=== PATIENT | female | born 1995 | race Hispanic/Latino ===

== ENCOUNTER 2019-02-13 09:48 | Emergency (ER) | payer OTHER, SELFPAY ==
[2019-02-13] MEDS ORDERED: NA CHLORIDE 0.9% 1,000 ML ONE (10:38)
[2019-02-13] MEDS ORDERED: METOCLOPRAMIDE 10 MG/2mL INJ ONE (10:38)
[2019-02-13] MEDS ORDERED: DIPHENHYDRAMINE 50 MG/ML VIAL ONE (10:38)
[2019-02-13] MEDS ORDERED: dexAMETHasone 10 MG/ML VIAL ONE (10:39)
--- NOTE | 2019-02-13 11:01 | RAD REPORT ---
EXAM DESCRIPTION: CT - Head Brain Wo Cont - 02/13/2019 10:55 am CLINICAL HISTORY: HEADACHE Headache, drowsiness, vomiting COMPARISON: No comparisons TECHNIQUE: All CT scans are performed using dose optimization technique as appropriate and may inclu de automated exposure control or mA/KV adjustment according to patient size. FINDINGS: No intracranial hemorrhage, hydrocephalus or extra-axial fluid collection.No areas of brai n edema or evidence of midline shift. The paranasal sinuses and mastoids are clear. The calvarium is intact. IMPRESSION: No acute intracranial abnormality.
[2019-02-13 11:29] LABS: Urine Blood NEGATIVE (NEG); Urine Glucose NEGATIVE (NEG); Urine Protein NEGATIVE (NEG); Urine Specific Gravity 1.025 (1.005-1.030)
--- NOTE | 2019-02-13 11:58 | EDPHYS ---
Physician Documentation [facility] Name: Samanta North Age: 24 yrs Sex: Female : 1995 Arrival Date: 02/13/2019 Time: 09:51 Bed 8 Private MD: ED Physician Guzman Starkey HPI: 02/13 10:40 This 24 yrs old Female presents to ER via Ambulatory with complaints of rn Headache, Vomiting. 10:40 The patient complains of pain to the forehead. The patient describes the headache as rn aching. 10:41 Onset: The symptoms/episode began/occurred yesterday. Associated signs and symptoms: rn Pertinent positives: nausea, vomiting, Pertinent negatives: altered mental status, fever, neck stiffness, rash, vision changes, vision loss. Severity of symptoms: At its worst the pain was moderate, in the emergency department the pain is unchanged. The symptoms are alleviated by nothing. the symptoms are aggravated by nothing. The patient has experienced similar episodes in the past. The patient has not recently seen a physician. 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 - Social history:: Smoking status: Patient/guardian denies using tobacco, Patient uses alcohol, occasionally. Patient/guardian denies using street drugs. - Ebola Screening: : Patient negative for fever greater than or equal to 101.5 degrees Fahrenheit, and additional compatible Ebola Virus Disease symptoms Patient denies exposure to infectious person Patient denies travel to an Ebola-affected area in the 21 days before illness onset No symptoms or risks identified at this time. - Family history:: not pertinent. - Hospitalizations: : No recent hospitalization is reported. ROS: 10:41 Constitutional: Negative for fever, chills, and weight loss, Eyes: Negative for injury, rn pain, redness, and discharge, Neck: Negative for injury, pain, and swelling, Cardiovascular: Negative for chest pain, palpitations, and edema, Respiratory: Negative for shortness of breath, cough, wheezing, and pleuritic chest pain, Abdomen/GI: Negative for diarrhea, and constipation, MS/Extremity: Negative for injury and deformity, Skin: Negative for injury, rash, and discoloration, Neuro: Negative for weakness, numbness, tingling, and seizure. Exam: 10:41 Constitutional: This is a well developed, well nourished patient who is awake, alert, rn and in no acute distress. Head/Face: Normocephalic, atraumatic. Eyes: Pupils equal round and reactive to light, extra-ocular motions intact. Lids and lashes normal. Conjunctiva and sclera are non-icteric and not injected. Cornea within normal limits. Periorbital areas with no swelling, redness, or edema. Neck: Trachea midline, no thyromegaly or masses palpated, and no cervical lymphadenopathy. Supple, full range of motion without nuchal rigidity, or vertebral point tenderness. No Meningismus. Cardiovascular: Regular rate and rhythm. No pulse deficits. Respiratory: No increased work of breathing, no retractions or nasal flaring. Abdomen/GI: soft, non-tender Skin: Warm, dry MS/ Extremity: Pulses equal, no cyanosis. Neurovascular intact. Full, normal range of motion. Equal circumference. Neuro: Awake and alert, GCS 15, oriented to person, place, time, and situation. Cranial nerves II-XII grossly intact. Motor strength 5/5 in all extremities. Sensory grossly intact. Cerebellar exam normal. Normal gait. Vital Signs: 10:01 BP 138 / 96; Pulse 86; Resp 14; Temp 98.1(O); Pulse Ox 99% on R/A; Weight 61.23 kg; Height 5 ft. 4 in. (162.56 cm); Pain 8/10; 11:05 BP 115 / 84; Pulse 88; Resp 18 S; Pulse Ox 99% on R/A; Pain 8/10; aa5 10:01 Body Mass Index 23.17 (61.23 kg, 162.56 cm) Duson Coma Score: 11:55 Eye Response: spontaneous(4). Verbal Response: oriented(5). Motor Response: obeys rn commands(6). Total: 15. MDM: 10:03 Patient medically screened. rn 11:55 Differential diagnosis: cluster headache, migraine, neoplasm, tension headache, rn vasomotor headache. Data reviewed: vital signs, nurses notes, lab test result(s), radiologic studies, CT scan, and as a result, I will discharge patient. Counseling: I had a detailed discussion with the patient and/or guardian regarding: the historical points, exam findings, and any diagnostic results supporting the discharge/admit diagnosis, lab results, radiology results, the need for outpatient follow up, to return to the emergency department if symptoms worsen or persist or if there are any questions or concerns that arise at home. Response to treatment: the patient's symptoms have markedly improved after treatment, patient is well hydrated. and as a result, I will discharge patient. Special discussion: I discussed with the patient/guardian in detail that at this point there is no indication for admission to the hospital. It is understood, however, that if the symptoms persist or worsen the patient needs to return immediately for re-evaluation. Based on the history and exam findings, there is no indication for further emergent testing or inpatient evaluation. I discussed with the patient/guardian the need to see the neurologist for further evaluation of the symptoms. 11:55 ED course: Feels much better, is getting ride home.. rn 02/13 10:40 Order name: Urine Dipstick--Ancillary (enter results); Complete Time: 11:34 bd 02/13 10:40 Order name: Urine --Ancillary (enter results); Complete Time: 11:34 bd 02/13 10:32 Order name: CT Head Brain wo Cont; Complete Time: 11:34 rn 02/13 10:32 Order name: Urine Dipstick-Ancillary (obtain specimen); Complete Time: 10:53 rn 02/13 10:32 Order name: Urine Test (obtain specimen); Complete Time: 10:53 rn 02/13 10:32 Order name: IV Start; Complete Time: 10:53 rn Administered Medications: : Drug: NS 0.9% 1000 ml Route: IV; Rate: 1000 ml; Site: right antecubital; aa5 11:40 Follow up: IV Status: Completed infusion; IV Intake: 1000ml aa Drug: Decadron - Dexamethasone 10 mg Route: IVP; Site: right antecubital; aa5 11:06 Follow up: Response: No adverse reaction aa5 Drug: Benadryl 25 mg Route: IVP; Site: right antecubital; aa5 11:06 Follow up: Response: [facility] 10:56 Drug: Reglan 10 mg Route: IVP; Site: right antecubital; 5 11:06 Follow up: Response: No adverse reaction [facility] Disposition: 02/13/19 11:57 Discharged to Home. Impression: Headache. - Condition is Stable. - Discharge Instructions: General Headache Without Cause, Migraine Headache. - Medication Reconciliation Form, Thank You Letter, Antibiotic Education, Prescription Opioid Use form. - Follow up: Myron Haile MD; When: As needed; Reason: Recheck today's complaints, Re-evaluation by your physician. - Problem is new. - Symptoms have improved. Signatures: Dispatcher [employer] EDMS Karyn Link RN Guzman Pennington ch, MD MD rn Calderon, Kira, ODELL RN aa5 Corrections: (The following items were deleted from the chart) 10:43 10:41 Constitutional: Negative for fever, chills, and weight loss, Eyes: Negative for rn injury, pain, redness, and discharge, Neck: Negative for injury, pain, and swelling, Cardiovascular: Negative for chest pain, palpitations, and edema, Respiratory: Negative for shortness of breath, cough, wheezing, and pleuritic chest pain, Abdomen/GI: Negative for diarrhea, and constipation, MS/Extremity: Negative for injury and deformity, Skin: Negative for injury, rash, and discoloration, Neuro: Negative for headache, weakness, numbness, tingling, and seizure, rn 10:46 10:41 Constitutional: This is a well developed, well nourished patient who is awake, rn alert, and in no acute distress. rn 12:13 11:57 02/13/2019 11:57 Discharged to Home. Impression: Headache. Condition is Stable. ch Forms are Medication Reconciliation Form, Thank You Letter, Antibiotic Education, Prescription Opioid Use. Follow up: Myron Haile; When: As needed; Reason: Recheck today's complaints, Re-evaluation by your physician. Problem is new. Symptoms have improved. rn
--- NOTE | 2019-02-13 11:58 | ER ---
Nurse's Notes [facility] Name: Samanta North Age: 24 yrs Sex: Female : 1995 Arrival Date: 02/13/2019 Time: 09:51 Bed 8 Private MD: Diagnosis: Headache Presentation: 02/13 10:01 Presenting complaint: Patient states: headache with vomiting since 2100 yesterday. this ch has happened befrore. Transition of care: patient was not received from another setting of care. Onset of symptoms was February 12, 2019 at 21:00. Risk Assessment: Do you want to hurt yourself or someone else? Patient reports no desire to harm self or others. Initial Sepsis Screen: Does the patient meet any 2 criteria? No. Patient's initial sepsis screen is negative. Does the patient have a suspected source of infection? No. Patient's initial sepsis screen is negative. Care prior to arrival: None. 10:01 Method Of Arrival: Ambulatory 10:01 Acuity: SANCHEZ 3 Triage Assessment: 10:01 Headache History: The patient has had previous headaches and this one is similar to previous episodes. General: Appears in no apparent distress. uncomfortable. 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 - Social history:: Smoking status: Patient/guardian denies using tobacco, Patient uses alcohol, occasionally. Patient/guardian denies using street drugs. - Ebola Screening: : Patient negative for fever greater than or equal to 101.5 degrees Fahrenheit, and additional compatible Ebola Virus Disease symptoms Patient denies exposure to infectious person Patient denies travel to an Ebola-affected area in the 21 days before illness onset No symptoms or risks identified at this time. - Family history:: not pertinent. - Hospitalizations: : No recent hospitalization is reported. Screenin:14 Abuse screen: Denies threats or abuse. Nutritional screening: No deficits noted. aa5 Tuberculosis screening: No symptoms or risk factors identified. Fall Risk None identified. Assessment: 10:05 General: Appears uncomfortable, Behavior is calm, cooperative. Pain: Complains of pain aa5 in right alevism, right side of top of head, right side of forehead Pain does not radiate. Pain currently is 8 out of 10 on a pain scale. Quality of pain is described as aching, throbbing, Pain began 1 day ago. Is continuous. 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 Speech is normal, Facial symmetry appears normal, Pupils are PERRLA, Reports headache frontal area. Cardiovascular: Heart tones S1 S2 present Rhythm is regular. Respiratory: Airway is patent Respiratory effort is even, unlabored, Respiratory pattern is regular, symmetrical. GI: Abdomen is flat, non-distended, Bowel sounds present X 4 quads. Abd is soft and non tender X 4 quads. Reports nausea, vomiting. : No signs and/or symptoms were reported regarding the genitourinary system. EENT: No signs and/or symptoms were reported regarding the EENT system. Derm: Skin is pink, warm \T\ dry. Musculoskeletal: Range of motion: intact in all extremities. 10:55 Reassessment: Patient is alert, oriented x 3, equal unlabored respirations, skin aa5 warm/dry/pink. Pt back from CT scan via wheelchair . 11:40 Reassessment: Patient is alert, oriented x 3, equal unlabored respirations, skin aa5 warm/dry/pink. 12:13 Reassessment: Patient appears in no apparent distress at this time. Patient and/or ch family updated on plan of care and expected duration. Pain level reassessed. Patient is alert, oriented x 3, equal unlabored respirations, skin warm/dry/pink. Patient states feeling better. Patient states symptoms have improved. Vital Signs: 10:01 BP 138 / 96; Pulse 86; Resp 14; Temp 98.1(O); Pulse Ox 99% on R/A; Weight 61.23 kg; ch Height 5 ft. 4 in. (162.56 cm); Pain 8/10; 11:05 BP 115 / 84; Pulse 88; Resp 18 S; Pulse Ox 99% on R/A; Pain 8/10; aa5 10:01 Body Mass Index 23.17 (61.23 kg, 162.56 cm) Isadora Coma Score: 11:55 Eye Response: spontaneous(4). Verbal Response: oriented(5). Motor Response: obeys rn commands(6). Total: 15. ED Course: 09:51 Patient arrived in ED. as 10:01 Arm band placed on left wrist. Patient placed in an exam room, on a stretcher. ch 10:02 Triage completed. ch 10:03 Guzman Starkey MD is Attending Physician. rn 10:04 Kira Echavarria RN is Primary Nurse. aa5 10:05 Patient has correct armband on for positive identification. Bed in low position. Call aa5 light in reach. Side rails up X 1. 10:53 Urine collected: clean catch specimen, cloudy, nae colored. jb1 10:55 Inserted saline lock: 20 gauge in right antecubital area, using aseptic technique. aa5 10:59 CT Head Brain wo Cont In Process Unspecified. EDMS 11:56 Myron Haile MD is Referral Physician. rn 12:13 No provider procedures requiring assistance completed. IV discontinued, intact, ch bleeding controlled, No redness/swelling at site. Pressure dressing applied. Administered Medications: 10:55 Drug: NS 0.9% 1000 ml Route: IV; Rate: 1000 ml; Site: right antecubital; aa5 11:40 Follow up: IV Status: Completed infusion; IV Intake: 1000ml aa5 10:55 Drug: Decadron - Dexamethasone 10 mg Route: IVP; Site: right antecubital; aa5 11:06 Follow up: Response: No adverse reaction aa5 10:55 Drug: Benadryl 25 mg Route: IVP; Site: right antecubital; aa5 11:06 Follow up: Response: No adverse reaction aa5 10:56 Drug: Reglan 10 mg Route: IVP; Site: right antecubital; aa5 11:06 Follow up: Response: No adverse reaction aa5 Intake: 11:40 IV: 1000ml; Total: 1000ml. aa5 Outcome: 11:57 Discharge ordered by . rn 12:13 Discharged to home ambulatory, with family. ch 12:13 Condition: improved 12:13 Discharge instructions given to patient, Instructed on discharge instructions, follow up and referral plans. Demonstrated understanding of instructions, follow-up care. 12:13 Patient left the ED. ch Signatures: Dispatcher [employer] Matt Powell jb1 Karyn Link RN RN ch Martinez, Amelia as Nieto, Roman, MD MD rn Calderon, Audri, RN RN aa5
[2019-02-13 12:33] VITALS: BP 115/84; O2SAT 99
[2019-02-13 12:35] VITALS: TEMP 98.1
== END 2019-02-13 12:13 | disposition home or self-care (01) ==
LOC: ER 09:48
DX: R51 Headache (principal)
CPT/HCPCS: 70450; 81003; 81025; 96361; 96374; 96375; 99284; J1100; J2765; J7030

== ENCOUNTER 2019-08-11 10:10 | Emergency (ER) | payer SELFPAY ==
[2019-08-11 12:00] LABS: Absolute Lymphocytes (CBC) 2.1 K/uL (0.7-4.9); Basophils % 0.4 % (0-1.3); Hematocrit 38.8 % (36.0-45.0); Lymphocytes % 24.9 % (15.3-44.8); RBC Red Blood Cell Count 4.46 M/uL (3.86-4.86)
[2019-08-11 12:13] LABS: BUN Blood Urea Nitrogen 13 mg/dL (7-18); Bicarbonate 27 mmol/L (21-32); Glucose Level 79 mg/dL (74-106); Potassium 3.7 mmol/L (3.5-5.1); Sodium Level 140 mmol/L (136-145)
--- NOTE | 2019-08-11 12:23 | EDPHYS ---
Physician Documentation [facility] Name: Samanta North Age: 24 yrs Sex: Female : 1995 Arrival Date: 08/11/2019 Time: 10:19 Bed 7 Private MD: ED Physician Roberto Young HPI: 08/10 12:06 This 24 yrs old Female presents to ER via Ambulatory with complaints of tw4 Vaginal Bleeding. 12:06 The patient presents with vaginal bleeding that is. Onset: The symptoms/episode tw4 began/occurred today. Modifying factors: The symptoms are alleviated by nothing, the symptoms are aggravated by nothing. Associated signs and symptoms: The patient has no apparent associated signs or symptoms. Severity of symptoms: At their worst the symptoms were moderate, in the emergency department the symptoms are unchanged. The patient has not experienced similar symptoms in the past. Historical: - Allergies: 10:37 No Known Allergies; ss - Home Meds: 10:37 control [Active]; ss - PMHx: 10:37 None; ss - PSHx: 10:37 r wrist; ss - Immunization history:: Adult Immunizations unknown. - Social history:: Smoking status: Patient denies any tobacco usage or history of. ROS: 12:06 Positive for vaginal bleeding, Negative for injury or acute deformity, urinary tw4 symptoms, urinary frequency, hematuria, pelvic pain, flank pain, burning with urination, difficulty urinating, bladder incontinence, foul smelling urine, vaginal itching, menstrual abnormality. 12:06 Constitutional: Negative for fever, chills, and weight loss, Eyes: Negative for injury, pain, redness, and discharge, Cardiovascular: Negative for chest pain, palpitations, and edema, Respiratory: Negative for shortness of breath, cough, wheezing, and pleuritic chest pain, Abdomen/GI: Negative for abdominal pain, nausea, vomiting, diarrhea, and constipation, Back: Negative for injury and pain, MS/Extremity: Negative for injury and deformity, Skin: Negative for injury, rash, and discoloration. Exam: 21:10 Constitutional: This is a well developed, well nourished patient who is awake, alert, tw4 and in no acute distress. Head/Face: Normocephalic, atraumatic. Chest/axilla: Normal chest wall appearance and motion. Nontender with no deformity. No lesions are appreciated. Cardiovascular: Regular rate and rhythm with a normal S1 and S2. No gallops, murmurs, or rubs. Normal PMI, no JVD. No pulse deficits. Respiratory: Lungs have equal breath sounds bilaterally, clear to auscultation and percussion. No rales, rhonchi or wheezes noted. No increased work of breathing, no retractions or nasal flaring. Abdomen/GI: Soft, non-tender, with normal bowel sounds. No distension or tympany. No guarding or rebound. No evidence of tenderness throughout. MS/ Extremity: Pulses equal, no cyanosis. Neurovascular intact. Full, normal range of motion. Neuro: Awake and alert, GCS 15, oriented to person, place, time, and situation. Cranial nerves II-XII grossly intact. Motor strength 5/5 in all extremities. Sensory grossly intact. Cerebellar exam normal. Normal gait. 21:10 : Pelvic Exam: Vital Signs: 10:35 BP 128 / 91; Pulse 61; Resp 14; Temp 98.1(TE); Pulse Ox 100% on R/A; Weight 58.97 kg; ss Height 5 ft. 4 in. (162.56 cm); Pain 6/10; 12:00 BP 118 / 78; Pulse 67; Resp 18; Temp 97.9; Pulse Ox 99% on R/A; ph 10:35 Body Mass Index 22.31 (58.97 kg, 162.56 cm) ss MDM: 11:27 Patient medically screened. 21:12 Data reviewed: vital signs, nurses notes. Special discussion: I discussed with the 4 patient/guardian in detail that at this point there is no indication for admission to the hospital. It is understood, however, that if the symptoms persist or worsen the patient needs to return immediately for re-evaluation. 08/10 10:58 Order name: Abo/rh Typing 08/10 10:58 Order name: Basic Metabolic Panel; Complete Time: 12:21 08/10 12:21 Interpretation: Normal except: CL 108. 08/10 10:58 Order name: CBC with Diff; Complete Time: 12:21 08/10 12:21 Interpretation: Normal except: MCV 87.1. 08/10 10:58 Order name: IV Saline Lock; Complete Time: 11:51 08/10 10:58 Order name: Labs collected and sent; Complete Time: 11:51 tw4 08/10 12:23 Order name: Urine Dipstick--Ancillary (enter results) bd 08/10 10:58 Order name: NPO; Complete Time: 11:51 tw4 08/10 10:58 Order name: Urine Dipstick-Ancillary (obtain specimen); Complete Time: 11:51 tw4 Administered Medications: No medications were administered Disposition: 08/11/19 12:22 Discharged to Home. Impression: Abnormal uterine and vaginal bleeding, unspecified, Cellulitis of perineum. - Condition is Stable. - Discharge Instructions: Abnormal Uterine Bleeding, Cellulitis, Adult. - Prescriptions for Cleocin 150 mg Oral Capsule - take 1 capsule by ORAL route every 6 hours for 10 days; 40 capsule. - Work release form, Medication Reconciliation Form, Thank You Letter, Antibiotic Education, Prescription Opioid Use form. - Follow up: Private Physician; When: Upon discharge from the Emergency Department; Reason: If symptoms return, Recheck today's complaints, Continuance of care. Signatures: Dispatcher [employer] EDMS Santa James Shelby RN RN Evelina Ward RN RN Roberto Young MD MD tw4 Corrections: (The following items were deleted from the chart) 12:26 12:09 Labs - recollect needed ordered. ph 12:39 12:22 08/11/2019 12:22 Discharged to Home. Impression: Abnormal uterine and vaginal ph bleeding, unspecified; Cellulitis of perineum. Condition is Stable. Forms are Medication Reconciliation Form, Thank You Letter, Antibiotic Education, Prescription Opioid Use. Follow up: Private Physician; When: Upon discharge from the Emergency Department; Reason: If symptoms return, Recheck today's complaints, Continuance of care. tw4
--- NOTE | 2019-08-11 12:23 | ER ---
Nurse's Notes [facility] Name: Samanta North Age: 24 yrs Sex: Female : 1995 Arrival Date: 08/11/2019 Time: 10:19 Bed 7 Private MD: Diagnosis: Abnormal uterine and vaginal bleeding, unspecified;Cellulitis of perineum Presentation: 08/10 10:35 Chief complaint: Patient states: "I have swelling on one side of my outer labia and I ss started bleeding this morning, but I had my period like a week and a half ago. Coronavirus screen: The patient has NOT traveled to [place] in the past 14 days. Proceed with normal triage procedures. Ebola Screen: Patient denies exposure to infectious person. Patient denies travel to an Ebola-affected area in the 21 days before illness onset. Initial Sepsis Screen: Does the patient meet any 2 criteria? No. Patient's initial sepsis screen is negative. Does the patient have a suspected source of infection? No. Patient's initial sepsis screen is negative. Risk Assessment: Do you want to hurt yourself or someone else? Patient reports no desire to harm self or others. 10:35 Method Of Arrival: Ambulatory ss 10:35 Acuity: SANCHEZ 3 ss Historical: - Allergies: 10:37 No Known Allergies; ss - Home Meds: 10:37 control [Active]; ss - PMHx: 10:37 None; ss - PSHx: 10:37 r wrist; ss - Immunization history:: Adult Immunizations unknown. - Social history:: Smoking status: Patient denies any tobacco usage or history of. Screenin:00 Abuse screen: Denies threats or abuse. Denies injuries from another. Nutritional ph screening: No deficits noted. Tuberculosis screening: No symptoms or risk factors identified. Fall Risk None identified. Assessment: 12:00 General: Appears in no apparent distress. comfortable, slender, well groomed, Behavior ph is calm, cooperative, appropriate for age. Pain: Complains of pain in pelvis. Neuro: Level of Consciousness is awake, alert, obeys commands, Oriented to person, place, time, situation. Cardiovascular: Capillary refill < 3 seconds. Respiratory: Airway is patent Respiratory effort is even, unlabored. : Reports pain with urination, vaginal bleeding that is light flow, spotty. Derm: Skin is intact, is healthy with good turgor, Skin is pink, warm \\T\\ dry. Musculoskeletal: Circulation, motion, and sensation intact. Range of motion: intact in all extremities. Vital Signs: 10:35 BP 128 / 91; Pulse 61; Resp 14; Temp 98.1(TE); Pulse Ox 100% on R/A; Weight 58.97 kg; Height 5 ft. 4 in. (162.56 cm); Pain 6/10; 12:00 BP 118 / 78; Pulse 67; Resp 18; Temp 97.9; Pulse Ox 99% on R/A; ph 10:35 Body Mass Index 22.31 (58.97 kg, 162.56 cm) ED Course: 10:19 Patient arrived in ED. mr 10:37 Triage completed. 10:37 Arm band placed on right wrist. 10:57 Roberto Young MD is Attending Physician. tw4 11:31 Evelina Ward RN is Primary Nurse. ph 11:36 Initial lab(s) drawn, by mt, sent to lab. Urine collected: clean catch specimen, clear, dh3 T\\T\\S collected, blood band applied to patient. Inserted saline lock: 22 gauge in right antecubital area, using aseptic technique. Blood collected. 12:00 Patient has correct armband on for positive identification. Placed in gown. Bed in low ph position. Call light in reach. Side rails up X 1. Pulse ox on. NIBP on. Door closed. Warm blanket given. Pillow given. Head of bed. 12:00 No provider procedures requiring assistance completed. IV discontinued, intact, ph bleeding controlled, No redness/swelling at site. Pressure dressing applied. Administered Medications: No medications were administered Outcome: 12:22 Discharge ordered by . tw4 12:39 Patient left the ED. ph 12:39 Discharged to home ambulatory. ph 12:39 Condition: good 12:39 Discharge instructions given to patient, Instructed on discharge instructions, follow up and referral plans. medication usage, Demonstrated understanding of instructions, follow-up care, medications, Prescriptions given X 1. Signatures: CadeMery le mr Abi Sim RN RN Evelina Ward RN RN Davina Mejia [facility] Roberto Young MD MD tw4
[2019-08-11 12:30] LABS: Urine Blood 2+ (NEG); Urine Glucose NEGATIVE (NEG); Urine Protein NEGATIVE (NEG); Urine pH 5.5 (5.0-7.0)
[2019-08-11 12:53] VITALS: BP 128/91; TEMP 98.1; O2SAT 100
== END 2019-08-11 12:39 | disposition home or self-care (01) ==
LOC: ER 10:10
DX: N93.9 Abnormal uterine and vaginal bleeding, unspecified (principal); L03.315 Cellulitis of perineum
CPT/HCPCS: 36415; 80048; 81003; 85025; 86900; 86901; 99284

== ENCOUNTER 2020-09-13 20:34 | Emergency (ER) | payer OTHER, SELFPAY ==
[2020-09-13] MEDS ORDERED: IBUPROFEN 200 MG TAB PO ONE (21:21)
[2020-09-13 21:29] LABS: Urine Blood 2+ (Negative); Urine Glucose Negative (Negative); Urine Protein 2+ (Negative); Urine Specific Gravity 1.025 (1.005-1.030); Urine pH 6.5 (5.0-7.0)
[2020-09-13 23:57] LABS: Absolute Lymphocytes (CBC) 0.6 K/uL (0.7-4.9); Basophils % 0.3 % (0-1.3); Hematocrit 37.8 % (36.0-45.0); Lymphocytes % 3.7 % (15.3-44.8); MPV 9.2 fL (7.6-11.3); RBC Red Blood Cell Count 4.39 M/uL (3.86-4.86)
[2020-09-14] MEDS ORDERED: NA CHLORIDE 0.9% 1,000 ML ONE (00:01)
[2020-09-14] MEDS ORDERED: MORPHINE 4 MG/ML SYR ONE (00:01)
[2020-09-14] MEDS ORDERED: ONDANSETRON 4 MG/2 ML VIAL ONE (00:01)
[2020-09-14 00:08] LABS: Albumin 3.9 g/dL (3.4-5.0); Bilirubin Direct 0.3 mg/dL (0-0.2); Bilirubin Total 0.9 mg/dL (0.2-1.0); Potassium 3.6 mmol/L (3.5-5.1); Protein, Total 8.2 g/dL (6.4-8.2)
[2020-09-14 00:39] LABS: Urine Specific Gravity/Preg 1.025 (1.005-1.030)
[2020-09-14 00:40] LABS: SARS-COV-2 RT PCR NEGATIVE (NEGATIVE)
[2020-09-14 00:45] LABS: Urine Bacteria >50 /HPF (<20)
[2020-09-14 00:47] LABS: Urine RBC <5 /HPF (NONE SEEN)
--- NOTE | 2020-09-14 01:56 | EDPHYS ---
Physician Documentation [facility] Name: Samanta North Age: 25 yrs Sex: Female : 1995 Arrival Date: 09/13/2020 Time: 20:38 Bed 18 Private MD: ED Physician Cody Saavedra HPI: 09/13 23:39 This 25 yrs old Female presents to ER via Ambulatory with complaints of Back pm1 Pain, Nausea, Chills. 23:39 The patient presents with pain that is acute. The symptoms are located in the right mid pm1 back. Onset: The symptoms/episode began/occurred 3 day(s) ago. The pain radiates to the right upper quadrant. Associated signs and symptoms: Pertinent positives: fever, nausea, Urinary frequency, Pertinent negatives: vomiting. The problem was sustained from unknown cause. Modifying factors: The patient symptoms are alleviated by nothing, the patient symptoms are aggravated by nothing. Severity of symptoms: in the emergency department the symptoms are actually worse. The patient has not experienced similar symptoms in the past. 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 - Social history:: Smoking status: Patient denies any tobacco usage or history of. ROS: 23:39 Cardiovascular: Negative for chest pain, palpitations, and edema, Respiratory: Negative pm1 for shortness of breath, cough, wheezing, and pleuritic chest pain. 23:39 MS/Extremity: Negative for injury and deformity, Skin: Negative for injury, rash, and discoloration, Neuro: Negative for headache, weakness, numbness, tingling, and seizure. 23:39 Constitutional: Positive for body aches, chills, fever, poor PO intake. 23:39 Abdomen/GI: Positive for abdominal pain, nausea, Negative for vomiting, diarrhea. 23:39 Back: Positive for flank pain, on the right. 23:39 : Positive for urinary frequency, Negative for burning with urination. Exam: 23:39 Constitutional: This is a well developed, well nourished patient who is awake, alert, pm1 and in no acute distress. Head/Face: Normocephalic, atraumatic. 23:39 Skin: Warm, dry with normal turgor. Normal color with no rashes, no lesions, and no evidence of cellulitis. MS/ Extremity: Pulses equal, no cyanosis. Neurovascular intact. Full, normal range of motion. 23:39 Cardiovascular: Exam negative for acute changes, Rate: normal, Rhythm: regular, Pulses: no pulse deficits are appreciated. 23:39 Respiratory: Exam negative for acute changes, respiratory distress, shortness of breath. 23:39 Abdomen/GI: Inspection: abdomen appears normal, Palpation: abdomen is soft and non-tender, in all quadrants. 23:39 Back: pain, that is mild, of the right mid back. 23:39 Neuro: Orientation: is normal, Mentation: is normal, Motor: is normal, moves all fours, Sensation: is normal, no obvious gross deficits. Vital Signs: 20:57 BP 126 / 91; Pulse 121; Resp 17; Temp 102.6; Pulse Ox 99% ; Weight 55.79 kg; Height 5 ll1 ft. 4 in. (162.56 cm); Pain 6/10; 23:18 BP 102 / 65; Pulse 102; Resp 15; Temp 99.6; Pulse Ox 97% ; Weight 55.79 kg; Height 5 ms1 ft. 4 in. (162.56 cm); 09/14 00:00 BP 110 / 71; Pulse 100; Resp 18; Pulse Ox 100% on R/A; wh 01:15 BP 99 / 64; Pulse 82; Resp 18; Pulse Ox 96% on R/A; wh 09/13 23:18 Body Mass Index 21.11 (55.79 kg, 162.56 cm) ms1 MDM: 09/13 23:13 Patient medically screened. pm1 23:27 ED course: Unable to order CT with IV contrast due to patient allergy - Throat closure, pm1 difficulty breathing with shellfish. 09/14 00:31 Data reviewed: vital signs. Data interpreted: Pulse oximetry: on room air is 97 %. pm1 Interpretation: normal. 01:45 Data reviewed: lab test result(s), CBC, electrolytes, urinalysis, radiologic studies, pm1 CT scan, I have discussed the patient's presentation/case with the attending Emergency Department Physician; and as a result, I will discharge patient, with antibiotics. Clinically pyelonephritis. Patient needs to follow up with urology due to bilateral hydronephrosis. Educated on return precautions . 01:52 Counseling: I had a detailed discussion with the patient and/or guardian regarding: the pm1 historical points, exam findings, and any diagnostic results supporting the discharge/admit diagnosis, lab results, radiology results, the need for outpatient follow up, a urologist, to return to the emergency department if symptoms worsen or persist or if there are any questions or concerns that arise at home. 09/13 21:29 Order name: Urine Dipstick-Ancillary; Complete Time: 23:20 EDIA 09/13 23:20 Order name: Basic Metabolic Panel pm1 09/13 23:20 Order name: CBC with Diff; Complete Time: 08:23 pm 09/13 23:20 Order name: Hepatic Function; Complete Time: 00:19 pm 09/13 23:20 Order name: Lipase; Complete Time: 00:19 pm 09/13 23:20 Order name: Urine Microscopic Only; Complete Time: 01:19 [facility] 09/13 23:21 Order name: Basic Metabolic Panel; Complete Time: 00:19 EDIA 09/13 23:26 Order name: CT Stone Protocol 1 09/13 23:32 Order name: Urine --Ancillary (enter results); Complete Time: 01:19 [facility] 09/14 00:06 Order name: Manual Differential; Complete Time: 08:23 EDIA 09/14 00:40 Order name: COVID-19/FLU A+B; Complete Time: 01:19 EDIA 09/14 00:49 Order name: Urine Culture [facility] 09/13 23:20 Order name: IV Saline Lock; Complete Time: 23:45 pm1 09/13 23:20 Order name: Labs collected and sent; Complete Time: 23:45 pm1 09/13 23:20 Order name: Urine Test (obtain specimen); Complete Time: 23:31 pm1 Administered Medications: 09/13 21:06 Drug: Motrin (ibuprofen) 600 mg Route: PO; [facility] 09/14 01:28 Follow up: Response: No adverse reaction 09/13 23:47 Drug: NS 0.9% 1000 ml Route: IV; Rate: 1000 ml; Site: right antecubital; 09/14 01:28 Follow up: Response: No adverse reaction; IV Status: Completed infusion 09/13 23:49 Drug: morphine 4 mg {Note: RASS 0.} Route: IVP; Site: right antecubital; 09/14 01:28 Follow up: Response: No adverse reaction; Pain is decreased; RASS: Alert and Calm (0) 09/13 23:51 Drug: Zofran (Ondansetron) 4 mg Route: IVP; Site: right antecubital; 09/14 01:28 Follow up: Response: No adverse reaction; Nausea is decreased Disposition: 08:22 Co-signature as Attending Physician, Cody Saavedra MD. pkshaka Disposition: 09/14/20 01:56 Discharged to Home. Impression: Urinary tract infection, site not specified - pyelonephritis. - Condition is Stable. - Discharge Instructions: Pyelonephritis, Adult, Urinary Tract Infection, Adult, Hydronephrosis. - Prescriptions for Cipro 500 mg Oral Tablet - take 1 tablet by ORAL route every 12 hours for 7 days; 14 tablet. Tylenol- Codeine #3 300-30 mg Oral Tablet - take 2 tablet by ORAL route every 4-6 hours As needed; 20 tablet. Zofran 4 mg Oral Tablet - take 1 tablet by ORAL route every 8 hours As needed; 20 tablet. - Medication Reconciliation Form, Thank You Letter, Antibiotic Education, Prescription Opioid Use form. - Follow up: Emergency Department; When: As needed; Reason: Worsening of condition. Follow up: Danish Dsouza MD; When: 2 - 3 days; Reason: Recheck today's complaints, Continuance of care, Re-evaluation by your physician. - Problem is new. - Symptoms have improved. Signatures: Dispatcher [employer] EDIA Cody Saavedra MD MD pkl Dann Barnes NP INTERMISSION COORDINATOR pm1 Miles Pereyra, RN RN jb4 Gurpreet Anthony, RN RN Valentino Rodriguez RN RN ll1 Corrections: (The following items were deleted from the chart) 00:01 09/13 23:27 CORONAVIRUS+MR.LAB.BRZ ordered. [facility] 09/14 00:01 04 23:27 Influenza Screen (A \T\ B)+BA.LAB.BRZ ordered. [facility] 09/14 02:59 01:56 09/14/2020 01:56 Discharged to Home. Impression: Urinary tract infection, site jb4 not specified - pyelonephritis. Condition is Stable. Forms are Medication Reconciliation Form, Thank You Letter, Antibiotic Education, Prescription Opioid Use. Follow up: Emergency Department; When: As needed; Reason: Worsening of condition. Follow up: Danish Dsouza; When: 2 - 3 days; Reason: Recheck today's complaints, Continuance of care, Re-evaluation by your physician. Problem is new. Symptoms have improved. pm1
--- NOTE | 2020-09-14 01:56 | ER ---
Nurse's Notes [facility] Name: Samanta North Age: 25 yrs Sex: Female : 1995 Arrival Date: 09/13/2020 Time: 20:38 Bed 18 Private MD: Diagnosis: Urinary tract infection, site not specified-pyelonephritis Presentation: 09/13 20:57 Chief complaint: Patient states: R lower back pain since Sunday night. Chills, ll1 decreased appetite, fever for 2 days. Coronavirus screen: Client denies travel out of the [place] in the last 14 days. chills, fatigue, fever, Client presents with at least one sign or symptom that may indicate coronavirus-19. Standard/surgical mask placed on the client. Ebola Screen: Patient denies travel to an Ebola-affected area in the 21 days before illness onset. Initial Sepsis Screen: Does the patient meet any 2 criteria? HR > 90 bpm. No. Patient's initial sepsis screen is negative. Does the patient have a suspected source of infection? Yes: Dysuria/Frequency/Urgency/UTI. Risk Assessment: Do you want to hurt yourself or someone else? Patient reports no desire to harm self or others. Onset of symptoms was September 11, 2020. 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 - Social history:: Smoking status: Patient denies any tobacco usage or history of. Screenin:15 Abuse screen: Denies threats or abuse. Denies injuries from another. Nutritional wh screening: No deficits noted. Tuberculosis screening: No symptoms or risk factors identified. Fall Risk None identified. Assessment: 23:15 General: Appears in no apparent distress. uncomfortable, Behavior is calm, cooperative, wh appropriate for age. General: Reports chills for fever for. Pain: Complains of pain in right mid back Pain radiates to right upper quadrant. Neuro: Cardiovascular: Capillary refill < 3 seconds. Respiratory: Airway is patent Respiratory effort is even, unlabored, Respiratory pattern is regular, symmetrical. GI: Abdomen is flat, non-distended, Abd is soft and non tender X 4 quads. : Reports urinary frequency. EENT: No signs and/or symptoms were reported regarding the EENT system. Derm: Skin is intact, is healthy with good turgor, Skin is pink, warm \T\ dry. normal. Musculoskeletal: Circulation, motion, and sensation intact. 09/14 00:20 Reassessment: Patient appears in no apparent distress at this time. No changes from previously documented assessment. Patient and/or family updated on plan of care and expected duration. Pain level reassessed. Patient is alert, oriented x 3, equal unlabored respirations, skin warm/dry/pink. 01:30 Reassessment: Patient appears in no apparent distress at this time. Patient and/or wh family updated on plan of care and expected duration. Pain level reassessed. Patient is alert, oriented x 3, equal unlabored respirations, skin warm/dry/pink. 02:58 Reassessment: Patient appears in no apparent distress at this time. Patient and/or jb4 family updated on plan of care and expected duration. Pain level reassessed. Patient is alert, oriented x 3, equal unlabored respirations, skin warm/dry/pink. Pt verbalized understanding of d/c and follow up instructions. Denies questions or concerns. Ambulated out of ED with steady gait. Vital Signs: 09/13 20:57 BP 126 / 91; Pulse 121; Resp 17; Temp 102.6; Pulse Ox 99% ; Weight 55.79 kg; Height 5 ll1 ft. 4 in. (162.56 cm); Pain 6/10; 23:18 BP 102 / 65; Pulse 102; Resp 15; Temp 99.6; Pulse Ox 97% ; Weight 55.79 kg; Height 5 ms1 ft. 4 in. (162.56 cm); 09/14 00:00 BP 110 / 71; Pulse 100; Resp 18; Pulse Ox 100% on R/A; 01:15 BP 99 / 64; Pulse 82; Resp 18; Pulse Ox 96% on R/A; 09/13 23:18 Body Mass Index 21.11 (55.79 kg, 162.56 cm) ms1 ED Course: 09/13 20:38 Patient arrived in ED. es 20:59 Triage completed. ll1 20:59 Arm band placed on Patient notified of wait time. ll1 23:07 Gurpreet Anthony, RN is Primary Nurse. 23:12 Dann Barnes NP is [facility]. pm1 23:12 Cody Saavedra MD is Attending Physician. pm1 23:15 Patient has correct armband on for positive identification. Bed in low position. Call light in reach. Side rails up X 1. Pulse ox on. NIBP on. 09/14 00:57 CT Stone Protocol In Process Unspecified. EDVT 01:55 Danish Dsouza MD is Referral Physician. pm1 02:58 No provider procedures requiring assistance completed. IV discontinued, intact, jb4 bleeding controlled, No redness/swelling at site. Pressure dressing applied. Administered Medications: 09/13 21:06 Drug: Motrin (ibuprofen) 600 mg Route: PO; [facility] 09/14 01:28 Follow up: Response: No adverse reaction 09/13 23:47 Drug: NS 0.9% 1000 ml Route: IV; Rate: 1000 ml; Site: right antecubital; 09/14 01:28 Follow up: Response: No adverse reaction; IV Status: Completed infusion 09/13 23:49 Drug: morphine 4 mg {Note: RASS 0.} Route: IVP; Site: right antecubital; 09/14 01:28 Follow up: Response: No adverse reaction; Pain is decreased; RASS: Alert and Calm (0) 09/13 23:51 Drug: Zofran (Ondansetron) 4 mg Route: IVP; Site: right antecubital; 09/14 01:28 Follow up: Response: No adverse reaction; Nausea is decreased Outcome: 01:56 Discharge ordered by . pm1 02:58 Discharged to home ambulatory. jb4 02:58 Condition: stable 02:58 Discharge instructions given to patient, Instructed on discharge instructions, follow up and referral plans. medication usage, Demonstrated understanding of instructions, follow-up care, medications, Prescriptions given X 3. 02:59 Patient left the ED. jb4 Addendum: 09/17/2020 07:32 Addendum: Culture Results: Positive urine culture. No further action required. Bacteria e b sensitive to prescribed antibiotic. Signatures: Dispatcher [employer] EDMyah Reynoso, Dann, CAMPAIGN COORDINATOR CAMPAIGN COORDINATOR pm1 Miles Pererya, RN RN jb4 Gurpreet Anthony RN RN Ana Laura Lauren Marchie ms1 Valentino Rodriguez, ODELL RN ll1
[2020-09-14 02:03] LABS: Blood Morphology Comment NOT SEEN (NOT SEEN); Platelet Estimate ADEQ
[2020-09-14 04:15] VITALS: TEMP 99.6
[2020-09-14 04:18] VITALS: BP 99/64; O2SAT 96
--- NOTE | 2020-09-14 12:50 | RAD REPORT ---
EXAM DESCRIPTION: CT - Stone Protocol - 09/14/2020 6:33 am CLINICAL HISTORY: 25 years Female Flank pain;Fever COMPARISON: None TECHNIQUE: Images were obtained in axial, sagittal, and coronal planes. No intravenous contrast was administered. This exam was performed according to our departmental dose-optimization program which includes use of Automated Exposure Control, adjustment of the mA and/or kV according to patient size and/or use o f iterative reconstruction technique. FINDINGS: Enlarged left lobe of the liver. Spleen is prominent in size measuring 12.8 cm in greatest dimension. Unremarkable pancreas, gallbladder, or adrenal glands bilaterally. No obstructing renal or ureteral calculi bilaterally. Mild bilateral hydronephrosis. No definite fuad nephric stranding bilaterally. Unremarkable bladder. Pelvic calcifications thought to be vascular in nature. Appendix within normal limits. No bowel obstruction, perforation, or inflammation. No abnormality lower lungs bilaterally. No acute osseous abnormality. IMPRESSION: Mild bilateral hydronephrosis. No obstructing renal or ureteral calculi bilaterally. Appendix within normal limits. Electronically signed by: Tanja Ackerman MD 09/14/2020 1:09 AM CDT Due to temporary technical issues with the PACS/Fluency reporting system, reports are being signed by the in house radiologist without review as a courtesy to ensure prompt reporting. The interpreting r adiologist is fully responsible for the content of the report.
== END 2020-09-14 02:59 | disposition home or self-care (01) ==
LOC: ER 20:34
DX: N39.0 Urinary tract infection, site not specified (principal); N12 Tubulo-interstitial nephritis, not specified as acute or chronic; Z20.822 Contact with and (suspected) exposure to COVID-19; Z91.013 Allergy to seafood
CPT/HCPCS: 0240U; 36415; 74176; 76377; 80048; 80076; 81003; 81015; 81025; 83690; 85025; 87077; 87086; 87088; 87186; 96361; 96374; 96375; 99284

== ENCOUNTER 2020-09-25 20:02 | Inpatient (IN) | payer OTHER, SELFPAY ==
[2020-09-25 21:15] LABS: Absolute Lymphocytes (CBC) 1.9 K/uL (0.7-4.9); Basophils % 0.4 % (0-1.3); Lymphocytes % 14.6 % (15.3-44.8); MPV 7.5 fL (7.6-11.3); RBC Red Blood Cell Count 4.28 M/uL (3.86-4.86)
[2020-09-25] MEDS ORDERED: ONDANSETRON 4 MG/2 ML VIAL ONE (21:15)
[2020-09-25] MEDS ORDERED: MORPHINE 4 MG/ML SYR ONE ×2 (21:15→23:28)
[2020-09-25 21:32] LABS: ALT/SGPT 31 U/L (12-78); AST/SGOT 11 U/L (15-37); Alkaline Phosphatase 71 U/L (45-117); BUN Blood Urea Nitrogen 13 mg/dL (7-18); Bicarbonate 28 mmol/L (21-32); Bilirubin Direct 0.2 mg/dL (0-0.2); Bilirubin Total 0.5 mg/dL (0.2-1.0); Glucose Level 90 mg/dL (74-106); Lipase 118 U/L (73-393); Potassium 3.6 mmol/L (3.5-5.1); Sodium Level 138 mmol/L (136-145)
[2020-09-25 21:36] LABS: Urine Bacteria <20 /HPF (<20); Urine RBC <5 /HPF (NONE SEEN)
--- NOTE | 2020-09-25 22:58 | ER ---
Nurse's Notes [facility] Name: Samanta North Age: 25 yrs Sex: Female : 1995 Arrival Date: 09/25/2020 Time: 20:06 Bed 16 Private MD: Diagnosis: Other intestinal obstruction-Small bowel ileus versus small bowel obstruction;Constipation Presentation: 09/25 20:18 Chief complaint: Patient states: Had kidney infection last week, been taking meds and ca1 feeling better. This morning the pain is back, started at the back then goes on the R side and now it's all over my belly. Not been able to eat all day because of nausea. Coronavirus screen: Client denies travel out of the [place] in the last 14 days. nausea, Client presents with at least one sign or symptom that may indicate coronavirus-19. Standard/surgical mask placed on the client. Provider contacted for isolation considerations. Ebola Screen: Patient negative for fever greater than or equal to 101.5 degrees Fahrenheit, and additional compatible Ebola Virus Disease symptoms Patient denies exposure to infectious person. Patient denies travel to an Ebola-affected area in the 21 days before illness onset. No symptoms or risks identified at this time. Initial Sepsis Screen: Does the patient meet any 2 criteria? No. Patient's initial sepsis screen is negative. Does the patient have a suspected source of infection? No. Patient's initial sepsis screen is negative. Risk Assessment: Do you want to hurt yourself or someone else? Patient reports no desire to harm self or others. Onset of symptoms was September 25, 2020. 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 - Social history:: Smoking status: Patient denies any tobacco usage or history of. Screenin:00 Abuse screen: Denies threats or abuse. Denies injuries from another. Nutritional rr5 screening: No deficits noted. Tuberculosis screening: No symptoms or risk factors identified. Fall Risk IV access (20 points). Total Rogel Fall Scale indicates No Risk (0-24 pts). Assessment: 21:00 General: Appears in no apparent distress. uncomfortable, Behavior is calm, cooperative, rr5 appropriate for age. Pain: Complains of pain in right lower quadrant and left lower quadrant Pain radiates to back Pain currently is 7 out of 10 on a pain scale. Quality of pain is described as aching, Pain began gradually, Is intermittent. Neuro: Level of Consciousness is awake, alert, obeys commands, Oriented to person, place, time. Cardiovascular: Capillary refill < 3 seconds Patient's skin is warm and dry. Respiratory: Airway is patent Respiratory effort is even, unlabored, Respiratory pattern is regular, symmetrical. GI: Abdomen is flat, non-distended, Reports lower abdominal pain. : Reports pain in bilateral flank(s), in lower back Denies burning with urination. EENT: No signs and/or symptoms were reported regarding the EENT system. Derm: Skin is intact, is healthy with good turgor, Skin temperature is warm. 21:00 Musculoskeletal: No signs and/or symptoms reported regarding the musculoskeletal system.rr5 21:38 Reassessment: Patient appears in no apparent distress at this time. Patient is alert, rr5 oriented x 3, equal unlabored respirations, skin warm/dry/pink. back from CTscan. 22:20 Reassessment: Patient appears in no apparent distress at this time. Patient is alert, rr5 oriented x 3, equal unlabored respirations, skin warm/dry/pink. 23:00 Reassessment: Patient appears in no apparent distress at this time. Patient is alert, rr5 oriented x 3, equal unlabored respirations, skin warm/dry/pink. for admission. 09/26 00:00 Reassessment: Patient appears in no apparent distress at this time. Patient is alert, rr5 oriented x 3, equal unlabored respirations, skin warm/dry/pink. awaiting for covid result. 01:15 Reassessment: Patient appears in no apparent distress at this time. Patient is alert, rr5 oriented x 3, equal unlabored respirations, skin warm/dry/pink. covid negative room assigned. Vital Signs: 09/25 20:18 BP 132 / 86; Pulse 70; Resp 16 S; Temp 98.3(TE); Pulse Ox 100% on R/A; Weight 56.7 kg ca1 (R); Height 5 ft. 4 in. (162.56 cm) (R); Pain 8/10; 21:20 BP 115 / 68; Pulse 75; Resp 17; Temp 98; Pulse Ox 100% ; rr5 22:00 BP 123 / 86; Pulse 66; Resp 15; Pulse Ox 98% ; rr5 23:00 BP 101 / 71; Pulse 62; Resp 18; Pulse Ox 100% ; rr5 09/26 00:00 BP 115 / 65; Pulse 78; Resp 16; Pulse Ox 98% ; rr5 01:24 BP 113 / 65; Pulse 75; Resp 16; Temp 98.2; Pulse Ox 99% ; rr5 09/25 20:18 Body Mass Index 21.46 (56.70 kg, 162.56 cm) ca1 ED Course: 09/25 20:06 Patient arrived in ED. bp1 20:20 Triage completed. ca1 20:21 Arm band placed on right wrist. ca1 20:34 Dann Barnes NP is PHCP. pm1 20:34 Florin Cedillo MD is Attending Physician. pm1 20:43 Juan Quiñonez RN is Primary Nurse. rr5 21:00 Inserted saline lock: 20 gauge in left antecubital area, using aseptic technique. Blood rr5 collected. 21:05 Urine collected: clean catch specimen, clear. rr5 21:20 Patient has correct armband on for positive identification. Bed in low position. Call rr5 light in reach. 21:35 CT Abd/Pelvis - Without Contrast In Process Unspecified. EDMS 22:58 Juan Starkey MD is Hospitalizing Provider. pm1 09/26 01:23 No provider procedures requiring assistance completed. Patient admitted, IV remains in rr5 place. intact, No redness/swelling at site. Administered Medications: 09/25 21:00 Drug: Zofran (Ondansetron) 4 mg Route: IVP; Site: left antecubital; rr5 22:00 Follow up: Response: No adverse reaction rr5 21:02 Drug: morphine 4 mg {Note: rass 0.} Route: IVP; Site: left antecubital; rr5 22:00 Follow up: Response: No adverse reaction; Pain is decreased; RASS: Alert and Calm (0) rr5 23:15 Drug: morphine 4 mg {Note: rass 0.} Route: IVP; Site: left antecubital; rr5 09/26 00:39 Follow up: Response: No adverse reaction; Pain is decreased; RASS: Alert and Calm (0) rr5 09/25 23:18 Drug: Flagyl (metroNIDAZOLE) 500 mg Volume: 100 ml; Route: IVPB; Rate: 200 ml/hr; rr5 Infused Over: 30 mins; Site: left antecubital; 09/26 00:06 Follow up: Response: No adverse reaction; IV Status: Completed infusion; IV Intake: rr5 100ml 09/25 23:18 Drug: D5-1/2 NS 1000 ml Route: IV; Rate: 125 ml/hr; Site: left antecubital; rr5 09/26 00:06 Dru mg of (Cipro (ciprofloxacin) 400 mg, NS 0.9% 200 ml) Volume: 200 ml; Route: rr5 IVPB; Infused Over: 60 mins; Site: left antecubital; Intake: 00:06 IV: 100ml; Total: 100ml. rr5 Outcome: 09/25 22:58 Decision to Hospitalize by Provider. pm1 09/26 01:23 Admitted to Med/surg accompanied by nurse, room 215, with chart, Report called to [facility] micaela Condition: stable Instructed on the need for admit. 01:27 Patient left the ED. ea Signatures: Dispatcher [employer] EDMS Dann Barnes, SAV CAN CLEANER pm1 Micaela Orozco RN RN ea Willis, Michelle mw3 Juan Quiñonez RN RN rr5 Jaja Zarco RN RN [facility] Jenn Womack Corrections: (The following items were deleted from the chart) 09/25 21:20 21:17 Radiology exam delayed due to test not completed at this time. mw3 mw3 21:23 21:20 Reassessment: awaiting for legal guardian before any procedure. patient will call rr5 her sister and tell her to come rr5 09/26 01:58 01:23 Admitted to Med/surg accompanied by nurse, room 215, with chart, Report called to [place] [id number]
--- NOTE | 2020-09-25 22:59 | EDPHYS ---
Physician Documentation [facility] Name: Samanta North Age: 25 yrs Sex: Female : 1995 Arrival Date: 09/25/2020 Time: 20:06 Bed 16 Private MD: ED Physician Florin Cedillo HPI: 09/25 20:53 This 25 yrs old Female presents to ER via Ambulatory with complaints of Flank pm1 Pain, Kidney Problem. 20:53 The patient complains of pain in the left low back and right low back. The pain does pm1 not radiate. Onset: The symptoms/episode began/occurred last night. Modifying factors: The symptoms are alleviated by nothing. the symptoms are aggravated by nothing. Associated signs and symptoms: Pertinent positives: suprapubic abdominal pain, constipation, Pertinent negatives: diarrhea, dysuria, fever. Severity of pain: in the emergency department the pain is actually worse. The patient has been recently seen at the [facility] Emergency Department, Was seen on 09/14/2020 for right flank pain and was diagnosed with pyelonephritis. Patient took all her antibiotics as directed and completed them this Sunday. She felt fine until last night. Presenting today with bilateral flank pain, suprapubic pain, and 2 days of constipation . 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 - Social history:: Smoking status: Patient denies any tobacco usage or history of. ROS: 20:53 Cardiovascular: Negative for chest pain, palpitations, and edema, Respiratory: Negative pm1 for shortness of breath, cough, wheezing, and pleuritic chest pain. 20:53 : Negative for injury, bleeding, discharge, and swelling, MS/Extremity: Negative for injury and deformity, Skin: Negative for injury, rash, and discoloration, Neuro: Negative for headache, weakness, numbness, tingling, and seizure. 20:53 Constitutional: Positive for Decreased PO intake due to nausea, Negative for body aches, fever. 20:53 Abdomen/GI: Positive for abdominal pain, of the suprapubic area. 20:53 Back: Positive for flank pain, bilaterally. Exam: 20:53 Constitutional: This is a well developed, well nourished patient who is awake, alert, pm1 and in no acute distress. Head/Face: Normocephalic, atraumatic. 20:53 Back: No spinal tenderness. No costovertebral tenderness. Full range of motion. 20:53 Skin: Warm, dry with normal turgor. Normal color with no rashes, no lesions, and no evidence of cellulitis. MS/ Extremity: Pulses equal, no cyanosis. Neurovascular intact. Full, normal range of motion. 20:53 Cardiovascular: Rate: normal, Rhythm: regular, Pulses: no pulse deficits are appreciated. 20:53 Respiratory: Exam negative for acute changes, respiratory distress, Breath sounds: are clear throughout. 20:53 Abdomen/GI: Inspection: abdomen appears normal, Palpation: soft, in all quadrants, mild abdominal tenderness, in the suprapubic area and left lower quadrant, mass, is not appreciated. 20:53 Neuro: Exam negative for acute changes, Orientation: is normal, Mentation: is normal, Motor: is normal, moves all fours. Vital Signs: 20:18 BP 132 / 86; Pulse 70; Resp 16 S; Temp 98.3(TE); Pulse Ox 100% on R/A; Weight 56.7 kg ca1 (R); Height 5 ft. 4 in. (162.56 cm) (R); Pain 8/10; 21:20 BP 115 / 68; Pulse 75; Resp 17; Temp 98; Pulse Ox 100% ; rr5 22:00 BP 123 / 86; Pulse 66; Resp 15; Pulse Ox 98% ; rr5 23:00 BP 101 / 71; Pulse 62; Resp 18; Pulse Ox 100% ; rr5 09/26 00:00 BP 115 / 65; Pulse 78; Resp 16; Pulse Ox 98% ; rr5 01:24 BP 113 / 65; Pulse 75; Resp 16; Temp 98.2; Pulse Ox 99% ; rr5 09/25 20:18 Body Mass Index 21.46 (56.70 kg, 162.56 cm) ca1 MDM: 09/25 20:38 Patient medically screened. pm1 22:26 Counseling: I had a detailed discussion with the patient and/or guardian regarding: the pm1 historical points, exam findings, and any diagnostic results supporting the discharge/admit diagnosis, lab results, radiology results, the need for further work-up and treatment in the hospital. 22:30 Physician consultation: Von WILLINGHAM was called at 22:30, was contacted at 22:30, pm1 regarding admission, patient's condition, would like consultation with General surgeon. 22:43 Physician consultation: Kyle Lowry MD was called at 22:43, was contacted at 22:43, pm1 regarding consult, patient's condition, and will see patient would like admission per Dr. Juan Starkey MD would like medications started, Cipro and Flagyl, NPO, IV fluids. 22:54 Data reviewed: vital signs. Data interpreted: Pulse oximetry: on room air is 100 %. pm1 Interpretation: normal. 09/25 20:52 Order name: Basic Metabolic Panel pm1 09/25 20:52 Order name: CBC with Diff pm1 09/25 20:52 Order name: Hepatic Function pm1 09/25 20:52 Order name: Lipase pm1 09/25 20:52 Order name: Urine Microscopic Only; Complete Time: 21:57 pm1 09/25 20:53 Order name: Basic Metabolic Panel; Complete Time: 21:35 EDMS 09/25 20:53 Order name: Liver (Hepatic) Function; Complete Time: 21:35 EDMS 09/25 20:53 Order name: Lipase; Complete Time: 21:35 EDMS 09/25 20:53 Order name: CBC with Automated Diff; Complete Time: 21:35 EDMS 09/25 20:54 Order name: [place] Screen Profile; Complete Time: 21:57 pm1 09/25 20:54 Order name: CT Abd/Pelvis - Without Contrast pm1 09/25 21:12 Order name: Urine --Ancillary (enter results); Complete Time: 23:52 tt3 09/25 23:00 Order name: COVID-19 : Document "Date of Symptom Onset" if Symptomatic. rr5 09/26 01:08 Order name: SARS-COV-2 RT PCR; Complete Time: 13:17 EDMS 09/25 20:52 Order name: IV Saline Lock; Complete Time: 21:19 pm1 09/25 20:52 Order name: Labs collected and sent; Complete Time: 21:19 pm1 09/25 20:52 Order name: Urine Dipstick-Ancillary (obtain specimen); Complete Time: 21:19 pm1 09/25 20:52 Order name: Urine Test (obtain specimen); Complete Time: 21:19 pm1 09/25 23:01 Order name: NPO; Complete Time: 23:19 pm1 Administered Medications: 21:00 Drug: Zofran (Ondansetron) 4 mg Route: IVP; Site: left antecubital; rr5 22:00 Follow up: Response: No adverse reaction rr5 21:02 Drug: morphine 4 mg {Note: rass 0.} Route: IVP; Site: left antecubital; rr5 22:00 Follow up: Response: No adverse reaction; Pain is decreased; RASS: Alert and Calm (0) rr5 23:15 Drug: morphine 4 mg {Note: rass 0.} Route: IVP; Site: left antecubital; rr5 09/26 00:39 Follow up: Response: No adverse reaction; Pain is decreased; RASS: Alert and Calm (0) rr5 09/25 23:18 Drug: Flagyl (metroNIDAZOLE) 500 mg Volume: 100 ml; Route: IVPB; Rate: 200 ml/hr; rr5 Infused Over: 30 mins; Site: left antecubital; 09/26 00:06 Follow up: Response: No adverse reaction; IV Status: Completed infusion; IV Intake: rr5 100ml 09/25 23:18 Drug: D5-1/2 NS 1000 ml Route: IV; Rate: 125 ml/hr; Site: left antecubital; rr5 09/26 00:06 Dru mg of (Cipro (ciprofloxacin) 400 mg, NS 0.9% 200 ml) Volume: 200 ml; Route: rr5 IVPB; Infused Over: 60 mins; Site: left antecubital; Disposition: 04:27 Co-signature as Attending Physician, Florin Cedillo MD. mh7 Disposition: 09/25/20 22:58 Hospitalization ordered by Juan Starkey for Inpatient Admission. Preliminary diagnosis are Other intestinal obstruction - Small bowel ileus versus small bowel obstruction, Constipation. - Bed requested for Telemetry/MedSurg (Inpatient). - Status is Inpatient Admission. ea - Condition is Stable. - Problem is new. - Symptoms have improved. Signatures: Dispatcher [employer] EDLuz Tomas RN RN cg Dann Barnes, CRIMINAL RECORDS TECHNICIAN CRIMINAL RECORDS TECHNICIAN pm1 Micaela Orozco RN RN ea Roque, Raymond, RN RN rr5 Jaja Zarco RN RN ca1 Holmes, Maurice, MD MD 7 Corrections: (The following items were deleted from the chart) 01:12 09/25 22:58 Hospitalization Ordered by Juan Starkey MD for Inpatient Admission. cg Preliminary diagnosis is Other intestinal obstruction - Small bowel ileus versus small bowel obstruction; Constipation. Bed requested for Telemetry/MedSurg (Inpatient). Status is Inpatient Admission. Condition is Stable. Problem is new. Symptoms have improved. pm1 09/26 01:27 01:09/25/2020 22:58 Hospitalization Ordered by Juan Starkey MD for Inpatient ea Admission. Preliminary diagnosis is Other intestinal obstruction - Small bowel ileus versus small bowel obstruction; Constipation. Bed requested for Telemetry/MedSurg (Inpatient). Status is Inpatient Admission. Condition is Stable. Problem is new. Symptoms have improved. cg
[2020-09-25] MEDS ORDERED: METRONIDAZOLE 500mg IVPB 500 MG/100 ML BAG IV ONE (23:28)
[2020-09-25] MEDS ORDERED: CIPROFLOXACIN 400mg IV 400 MG/200 ML BAG IV ONE (23:28)
[2020-09-25] MEDS ORDERED: D5 0.45 NS 1,000 ML IV ONE (23:28)
[2020-09-25 23:44] LABS: Urine Specific Gravity/Preg 1.025 (1.005-1.030)
--- NOTE | 2020-09-26 01:07 | P.HP ---
Certification for Inpatient Patient admitted to: Inpatient With expected LOS: >2 Midnights Patient will require the following post-hospital care: None Practitioner: I am a practitioner with admitting privileges, knowledge of patient current condition, hospital course, and medical plan of care. Services: Services provided to patient in accordance with Admission requirements found in Title 42 Section 412.3 of the Code of Federal Regulations <Von Tineo - Last Filed: 09/26/20 01:04> Patient History Date of Service: 09/26/20 Reason for admission: Small-bowel obstruction History of Present Illness: 25-year-old otherwise healthy female presents emergency department for abdominal pain. Patient with recent visit for UTI/hydronephrosis/suspected pyelonephritis. Patient was treated with ciprofloxacin and improved well at home. Today patient presents emergency department with bilateral flank/lower abdominal pain for the last couple of days. Patient reports no bowel movement or flatus for the past 2 days. Lab significant for white blood cell count 13.2, CT abdomen pelvis without contrast demonstrates evidence of severe proximal small bowel ileus versus high-grade small-bowel obstruction with transition point in the posterior left upper quadrant, pain colonic small dense stool burden, previous mild bilateral hydronephrosis resolved. General surgery was consulted while patient was in the emergency department, recommends admission with IV fluids, IV antibiotics, p.r.n. pain and nausea medications, NPO and nasogastric tube for nausea, vomiting, increased abdominal pain or distention. 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, lives with family - Family History Mother -: Hypertension, Diabetes - Social History Smoking Status: Never smoker Alcohol use: No CD- Drugs: No Caffeine use: Yes Place of Residence: Home <Von Tineo - Last Filed: 09/26/20 01:04> Date of Service: 09/26/20 <Juan Starkey - Last Filed: 09/26/20 13:18> Allergies shellfish derived Allergy (Verified 09/26/20 01:49) Nausea/Vomiting Home Medications: NK [No Home Meds] 09/26/20 Review of Systems 10-point ROS is otherwise unremarkable Gastrointestinal: Nausea, Abdominal Pain, Constipation <Von Tineo - Last Filed: 09/26/20 01:04> Physical Examination - Physical Exam General: Alert, In no apparent distress HEENT: Atraumatic, PERRLA, Mucous membr. moist/pink Neck: Supple, 2+ carotid pulse no bruit, No LAD Respiratory: Clear to auscultation bilaterally, Normal air movement Cardiovascular: Regular rate/rhythm, Normal S1 S2 Gastrointestinal: Normal bowel sounds, Tenderness (Mild lower abdominal tenderness) Musculoskeletal: No tenderness Integumentary: No rashes Neurological: Normal speech, Normal strength at 5/5 x4 extr, Normal tone, Normal affect - Studies Laboratory Data (last 24 hrs) 09/25/20 21:05: WBC 13.20 H D, Hgb 12.3, Hct 37.0, Plt Count 409 H D 09/25/20 21:05: Sodium 138, Potassium 3.6, BUN 13, Creatinine 0.70, Glucose 90, Total Bilirubin 0.5, AST 11 L, ALT 31, Alkaline Phosphatase 71, Lipase 118 <Von Tineo - Last Filed: 09/26/20 01:04> - Studies Laboratory Data (last 24 hrs) 09/25/20 21:05: WBC 13.20 H D, Hgb 12.3, Hct 37.0, Plt Count 409 H D 09/25/20 21:05: Sodium 138, Potassium 3.6, BUN 13, Creatinine 0.70, Glucose 90, Total Bilirubin 0.5, AST 11 L, ALT 31, Alkaline Phosphatase 71, Lipase 118 <Juan Starkey - Last Filed: 09/26/20 13:18> Assessment and Plan - Plan Assessment Small-bowel obstruction Plan Small-bowel obstruction: General surgery consulted, continue with IVF, ABX, NPO, p.r.n. pain medications and anti emetics, encourage ambulation. NGT for worsening pain, nausea vomiting, abdominal distension. DVT prophylaxis Lovenox 40 mg subcutaneous once daily. Appreciate further input from general surgery. Discharge Plan: Home Plan to discharge in: 48 Hours - Advance Directives Does patient have a Living Will: No Does patient have a Durable POA for Healthcare: No - Code Status/Comfort Care Code Status Assessed: Yes (Full code) Critical Care: No Time Spent Managing Pts Care (In Minutes): 55 <Von Tineo - Last Filed: 09/26/20 01:04> - Plan Plan of care reviewed as noted above Small bowel obstructionn.p.o., IV fluids, antibiotics General surgery consulted Low threshold for NG tube if patient begins to have emesis. <Juan Starkey - Last Filed: 09/26/20 13:18>
[2020-09-26] MEDS: NA CHLORIDE 0.9% 1,000 ML IV SCH ×2 (01:46→16:07)
[2020-09-26 02:08] VITALS: BMI 22.1
[2020-09-26] MEDS: ONDANSETRON 4 MG/2 ML VIAL IV PRN ×2 (02:16→12:01)
[2020-09-26] MEDS: MORPHINE 2 MG/ML SYR IV PRN ×2 (05:22→16:11)
[2020-09-26 06:26] LABS: ALT/SGPT 31 U/L (12-78); AST/SGOT 11 U/L (15-37); Albumin 3.7 g/dL (3.4-5.0); Alkaline Phosphatase 66 U/L (45-117); BUN Blood Urea Nitrogen 11 mg/dL (7-18); Bicarbonate 28 mmol/L (21-32); Bilirubin Total 0.6 mg/dL (0.2-1.0); Glucose Level 79 mg/dL (74-106); Potassium 3.7 mmol/L (3.5-5.1); Protein, Total 7.5 g/dL (6.4-8.2); Sodium Level 139 mmol/L (136-145)
[2020-09-26 06:27] LABS: Absolute Lymphocytes (CBC) 2.8 K/uL (0.7-4.9); Basophils % 0.5 % (0-1.3); Hematocrit 36.8 % (36.0-45.0); MPV 7.8 fL (7.6-11.3); RBC Red Blood Cell Count 4.23 M/uL (3.86-4.86)
[2020-09-26] MEDS ORDERED: KCL 20 MEQ/100 mL IVPB 20 MEQ/100 ML BAG IV ONE (07:00)
[2020-09-26] MEDS: ENOXAPARIN 40 MG/0.4 ML SQ SCH (08:46)
[2020-09-26] MEDS: METRONIDAZOLE 500mg IVPB 500 MG/100 ML BAG IV SCH ×2 (08:46→16:08)
[2020-09-26] MEDS: CIPROFLOXACIN 400mg IV 400 MG/200 ML BAG IV SCH ×2 (10:03→20:27)
--- NOTE | 2020-09-26 10:49 | RAD REPORT ---
EXAM DESCRIPTION: RAD - Abdomen W Erect - 09/26/2020 5:22 am CLINICAL HISTORY: Abdominal pain COMPARISON: September 25, 2020 FINDINGS: Free air is not seen beneath the diaphragm. Air and stool is present throughout colon. Mildly dilated loop of small bowel is present within pelvis. The bowel gas pattern has improved since September 25 CAT scan
[2020-09-26 11:13] VITALS: O2SAT 98
--- NOTE | 2020-09-26 13:23 | P.PN ---
Subjective Date of Service: 09/26/20 Chief Complaint: Small-bowel obstruction Subjective: Improving (Nausea improved slightly, pain improved slightly, no flatus/no BM. Does not feel her abdomen is any more distended than it was when she first got up to the floor.) Review of Systems 10-point ROS is otherwise unremarkable Physical Examination - Vital Signs Temperature: 98 F Blood Pressure: 107/57 Pulse: 64 Respirations: 16 Pulse Ox (%): 99 - Studies Laboratory Data (last 24 hrs) 09/25/20 21:05: WBC 13.20 H D, Hgb 12.3, Hct 37.0, Plt Count 409 H D 09/25/20 21:05: Sodium 138, Potassium 3.6, BUN 13, Creatinine 0.70, Glucose 90, Total Bilirubin 0.5, AST 11 L, ALT 31, Alkaline Phosphatase 71, Lipase 118 Assessment & Plan Physician Review Additional Text: Physical Exam General: Alert, In no apparent distress HEENT: normal conjunctiva, sclera anicteric Respiratory: Clear to auscultation bilaterally, Normal air movement Cardiovascular: Regular rate/rhythm, Normal S1 S2 Gastrointestinal: soft, mild lower abdominal TTP, no distention, no rebound Ext: No rash, no swelling Problem List proximal small bowel ileus vs obstruction -no prior abdominal procedures/surgery -continue NPO, IVF, IV Antibiotics, zofran -NGT if worsening pain, vomiting, distention -consider advancing diet once passing flatus / no pain -general surgery consulted VTE: lovenox Code: full Dispo: anticipate dc home in 24-48hrs Time Spent Managing Pts Care (In Minutes): 35
--- NOTE | 2020-09-26 16:23 | CON ---
Date of Consultation: 09/26/2020 Reason For Service: Small bowel obstruction. History Of Present Illness: This is the case of a 25-year-old patient. Last week, she has been havi ng some difficult time. She was diagnosed with UTI, hydronephrosis, pyelonephritis, being on antibio tics and then yesterday she developed abdominal pain, diagnosed with small bowel obstruction with thi ckening of the proximal small bowel. She was admitted for treatment and a surgical consult was richar spears. The thing she recalled out of the usual was that yesterday morning before this started, she noah t to a [employer] in [place] and then started to get sick. She feels better today with no nausea, no vomiting. Allergies: NONE. Medications: Reviewed including Cipro and Flagyl. Social History: She does smoke. She does drink alcohol. Family History: Hypertension. Review of Systems: No dysuria, hematuria, hematochezia, or melena. Ten points otherwise unremarkable. Physical Examination: General: The patient is awake, alert. HEENT: Pupils anicteric. Chest: Clear. Abdomen: Soft and depressible. No guarding, rebound, or peritoneal signs. Mild epigastric tenderne ss, a lot better than yesterday. Extremities: Good capillary refill. Laboratory Data: Blood work shows WBC count coming down from 13 to 10.7. CAT scan of the abdomen an d pelvis reviewed with the patient, showing the finding of thickening proximal small bowel and today x-ray shows improvement. Assessment: Small bowel obstruction. Plan: The patient feels better, passing gas. Abdominal pain has almost completely gone. No nausea, no vomiting. We are going to try a full liquid diet on her. If she fails that treatment, the we wi ll put her back n.p.o. and continue workup that may include I explained to her a laparotomy with bene fits, alternatives, and risks fully explained. If she improves from this condition, she still has so me homework to do in the sense of seeing her information technology data analyst to try to put a logical explanation t o what is going on her with the small bowel that may include even an EGD. She understands that plan, she likes that plan. She does not want to go for surgery at this moment and so hopefully she can im prove with diet. BIANCA/JOAQUINL Voice ID: [id number] Report ID: [id number]
[2020-09-27] MEDS: METRONIDAZOLE 500mg IVPB 500 MG/100 ML BAG IV SCH ×3 (00:34→17:00)
[2020-09-27] MEDS: NA CHLORIDE 0.9% 1,000 ML IV SCH (04:28)
[2020-09-27 05:50] LABS: Absolute Lymphocytes (CBC) 1.9 K/uL (0.7-4.9); Basophils % 0.6 % (0-1.3); Hematocrit 31.4 % (36.0-45.0); MPV 7.8 fL (7.6-11.3); RBC Red Blood Cell Count 3.59 M/uL (3.86-4.86)
[2020-09-27 06:01] LABS: ALT/SGPT 22 U/L (12-78); AST/SGOT 6 U/L (15-37); Alkaline Phosphatase 52 U/L (45-117); BUN Blood Urea Nitrogen 7 mg/dL (7-18); Bicarbonate 26 mmol/L (21-32); Bilirubin Total 0.5 mg/dL (0.2-1.0); Glucose Level 86 mg/dL (74-106); Protein, Total 6.1 g/dL (6.4-8.2); Sodium Level 142 mmol/L (136-145)
--- NOTE | 2020-09-27 10:00 | RAD REPORT ---
EXAM DESCRIPTION: RAD - Abdomen W Erect - 09/27/2020 8:57 am CLINICAL HISTORY: evaluate sbo COMPARISON: Abdomen W Erect dated 09/26/2020 TECHNIQUE: Supine and upright views of the abdomen were obtained. FINDINGS: Moderate stool volume fills the colon. No abnormal stomach dilatation. Small bowel loops h ave shown further decreased in prominence. No free air or pneumatosis. Phleboliths are seen in the pelvis. No suspicious calcifications. IMPRESSION: Further decrease in prominence of the small bowel since September 26 imaging. No free air, pneumatosis or progressive process.
[2020-09-27] MEDS: ENOXAPARIN 40 MG/0.4 ML SQ SCH (11:01)
[2020-09-27] MEDS: CIPROFLOXACIN 400mg IV 400 MG/200 ML BAG IV SCH (11:03)
--- NOTE | 2020-09-27 12:09 | RAD REPORT ---
EXAM DESCRIPTION: CT - Abdomen Pelvis Wo Contrast - 09/25/2020 10:41 pm CLINICAL HISTORY: Female, 25 years old, FLANK PAIN COMPARISON: 09/13/2020 TECHNIQUE: CT acquisition of the abdomen and pelvis without contrast. Coronal and sagittal reformatt ed images provided. This exam was performed according to departmental dose-optimization program which includes automated exposure control, adjustment of the mA and/or kV according to patient size, and/o r use of iterative reconstruction technique. FINDINGS: SUPPORTIVE DEVICES: None. LOWER CHEST: No significant abnormality within the lower chest. ABDOMEN AND PELVIS: Lack of intravenous contrast limits evaluation of the abdominal and pelvic viscera and vascular struc tures. Liver: Unremarkable. Gallbladder and bile ducts: Unremarkable. Pancreas: Unremarkable. Spleen: Unremarkable. Adrenal glands: Unremarkable. Kidneys and ureters: No evidence of stone or obstruction. The previous hydronephrosis appears to have resolved. Bladder: Incompletely distended without evident abnormality. Reproductive organs: Unremarkable. GI tract: The distal esophagus is unremarkable. The stomach is significantly distended without eviden ce of wall thickening. The duodenum and proximal loop of jejunum are severely dilated with circumfere ntial wall thickening and diffuse fluid contents; diameter of the proximal jejunum measures up to 3.7 cm. Evidence of a transition point in the posterior left upper quadrant. The more distal small bowel is decompressed. No evidence of appendicitis. The large bowel is normal in caliber without evidence of wall thickening. Pancolonic small dense stool burden. Lymph nodes: No obvious adenopathy. Peritoneum: No evidence of ascites, fluid collection, or free air. Abdominal wall: No significant hernia. Vessels: Unremarkable. MUSCULOSKELETAL: No acute osseous abnormality. IMPRESSION: 1. Evidence of a severe proximal small bowel ileus versus high-grade small bowel obstr uction with transition point in the posterior left upper quadrant. Assessment limited by lack of ente coco contrast. 2. Pancolonic small dense stool burden. Correlate for constipation. 3. The previous mild bilateral hydronephrosis appears to have resolved. Electronically signed by: Sohail Zuniga MD 09/25/2020 10:02 PM CDT Due to temporary technical issues with the PACS/Fluency reporting system, reports are being signed by the in house radiologist without review as a courtesy to ensure prompt reporting. The interpreting r adiologist is fully responsible for the content of the report.
--- NOTE | 2020-09-27 12:39 | PN ---
Date of Progress Note: 09/27/2020 Diagnosis: Enteritis, small bowel obstruction. Subjective: The patient is doing well. No complaint. No nausea. No vomiting. Abdomen is soft and depressible. The patient is passing flatus, having good bowel movement. Review of Systems: Ten points otherwise unremarkable. Physical Examination: General: Awake, alert. No distress. Abdomen: Soft and depressible. No guarding, rebound, or peritoneal signs. Extremities: Good capillary refill. Diagnostic Studies: X-ray shows improvement. Assessment: Small bowel obstruction, right now apparently improved and she is asymptomatic at this m oment. She is tolerating diet. We are going to advance diet today. If she tolerates diet, she has the option to go home. If she starts vomiting or nausea or the symptoms comes back, she has the opti on of surgical intervention or small bowel series. If she gets discharged today, she was advised to come to my office in a week from now. Call for appointment at [phone]. BIANCA/LEAH Voice ID: [id number] Report ID: [id number]
[2020-09-27 17:40] VITALS: BP 84/46; TEMP 98
--- NOTE | 2020-09-27 17:52 | P.DS ---
Admission Date: 09/25/20 Discharge Date: 09/27/20 Disposition: ROUTINE DISCHARGE Discharge Condition: GOOD Reason for Admission: Small-bowel obstruction, gastritis Consultations: General Surgery - Dr. Lowry Procedures: CT Abd/Pelvis (09/25): IMPRESSION: 1. Evidence of a severe proximal small bowel ileus versus high- grade small bowel obstruction with transition point in the posterior left upper quadrant. Assessment limited by lack of enteric contrast. 2. Pancolonic small dense stool burden. Correlate for constipation. 3. The previous mild bilateral hydronephrosis appears to have resolved. Xray (09/26): Free air is not seen beneath the diaphragm. Air and stool is present throughout colon. Mildly dilated loop of small bowel is present within pelvis. The bowel gas pattern has improved since September 25 CAT scan Xray (09/27): : Moderate stool volume fills the colon. No abnormal stomach dilatation. Small bowel loops have shown further decreased in prominence. No free air or pneumatosis. Phleboliths are seen in the pelvis. No suspicious calcifications. Problem List proximal small bowel ileus vs obstruction gastritis Brief History of Present Illness: 25-year-old otherwise healthy female presents emergency department for abdominal pain. Patient with recent visit for UTI/hydronephrosis/suspected pyelonephritis. Patient was treated with ciprofloxacin and improved well at home. Today patient presents emergency department with bilateral flank/lower abdominal pain for the last couple of days. Patient reports no bowel movement or flatus for the past 2 days. Lab significant for white blood cell count 13.2, CT abdomen pelvis without contrast demonstrates evidence of severe proximal small bowel ileus versus high-grade small-bowel obstruction with transition point in the posterior left upper quadrant, pain colonic small dense stool burden, previous mild bilateral hydronephrosis resolved. General surgery was co nsulted while patient was in the emergency department, recommends admission with IV fluids, IV antibiotics, p.r.n. pain and nausea medications, NPO and nasogastric tube for nausea, vomiting, increased abdominal pain or distention. Hospital Course: Empirically treated with IV antibiotics, bowel rest, IVF. Patient had improvement in her symptoms. Her diet was advanced, she was passing flatus, walking around the nursing station without any issue. She tolerated soft diet with minimal nausea. She was feeling better and requesting to be discharged home. Prescribed antibiotics for 10days Follow up with Dr. Lowry in 1 week Follow up with GI to schedule EGD Vital Signs/Physical Exam: Physical Exam General: Alert, In no apparent distress HEENT: normal conjunctiva, sclera anicteric Respiratory: Clear to auscultation bilaterally, Normal air movement Cardiovascular: Regular rate/rhythm, Normal S1 S2 Gastrointestinal: soft, no tenderness, no distention, no rebound Ext: No rash, no swelling Temp Pulse Resp BP Pulse Ox 98 F 60 16 84/46 L 100 09/27/20 16:00 09/27/20 16:00 09/27/20 16:00 09/27/20 16:00 09/27/20 16:00 Laboratory Data at Discharge: WBC 6.70 K/uL (4.3-10.9) D 09/27/20 05:13 Hgb 10.3 g/dL (12.0-15.0) L 09/27/20 05:13 Hct 31.4 % (36.0-45.0) L 09/27/20 05:13 Plt Count 310 K/uL (152-406) D 09/27/20 05:13 Sodium 142 mmol/L (136-145) 09/27/20 05:13 Potassium 4.0 mmol/L (3.5-5.1) 09/27/20 05:13 BUN 7 mg/dL (7-18) 09/27/20 05:13 Creatinine 0.68 mg/dL (0.55-1.3) 09/27/20 05:13 Glucose 86 mg/dL (74-106) 09/27/20 05:13 Total Bilirubin 0.5 mg/dL (0.2-1.0) 09/27/20 05:13 AST 6 U/L (15-37) L 09/27/20 05:13 ALT 22 U/L (12-78) 09/27/20 05:13 Alkaline Phosphatase 52 U/L (45-117) 09/27/20 05:13 Lipase 118 U/L (73-393) 09/25/20 21:05 Home Medications: Ciprofloxacin HCl [Cipro 500 MG Tablet] 500 mg PO BID 10 Days #20 tab 09/27/20 Pantoprazole [Protonix Tab] 40 mg PO DAILY 30 Days #30 tab 09/27/20 metroNIDAZOLE [Flagyl] 500 mg PO Q8H 10 Days #30 tablet 09/27/20 New Medications: Ciprofloxacin HCl [Cipro 500 MG Tablet] 500 mg PO BID 10 Days #20 tab metroNIDAZOLE [Flagyl] 500 mg PO Q8H 10 Days #30 tablet Pantoprazole [Protonix Tab] 40 mg PO DAILY 30 Days #30 tab Physician Discharge Instructions: You were found to have gastritis and duodenitis with a functional ileus that was causing your symptoms. This improved with bowel rest and antibiotics. You are discharged with 10 days of antibiotics and a prescription for pantoprazo le (antacid). Eat bland foods, avoid spicy foods, acidic foods/drinks. Follow up with Dr. Lowry in 1 week Follow up with a GI doctor to schedule an EGD (scope) in the next few weeks. Diet: [place] Activity: Ad eddie Followup: Kyle Lowry MD [ACTIVE - CAN ADMIT] - 1 Week (Follow up in office in 1 week. Call to schedule an appointment.) NONE,NONE [Primary Care Provider] - Time spent managing pt's care (in minutes): 40
[2020-09-28 14:46] LABS: Urine Blood Negative (Negative); Urine Glucose Negative (Negative); Urine Protein Negative (Negative); Urine Specific Gravity 1.025 (1.005-1.030)
== END 2020-09-27 19:15 | disposition home or self-care (01) | DRG 392 ==
LOC: ER 20:02 → ERHOLD 09-26 00:07 → 2ND 09-26 01:16
PROVIDERS: ADMIT Hospitalist; ATTEND Hospitalist
DX: K29.70 Gastritis, unspecified, without bleeding (principal); K56.699 Other intestinal obstruction unspecified as to partial versus complete obstruction; K29.80 Duodenitis without bleeding; K59.00 Constipation, unspecified; Z79.899 Other long term (current) drug therapy; Z91.013 Allergy to seafood; Z20.822 Contact with and (suspected) exposure to COVID-19
CPT/HCPCS: 36415; 74019; 74176; 80048; 80053; 80076; 81003; 81015; 81025; 83690; 85025; 86308; 96365; 96375; 99285; J0744; J1650; J2270; J2405; J3480; J7030; J7799; U0003

== ENCOUNTER 2021-11-28 12:00 | Emergency (ER) | payer OTHER ==
--- NOTE | 2021-11-28 13:33 | RAD REPORT ---
EXAM DESCRIPTION: RAD - Chest Single View - 11/28/2021 1:06 pm CLINICAL HISTORY: COUGH COMPARISON: No comparisons FINDINGS: Lines: None. Lungs: No evidence of edema or pneumonia. Pleural: No significant pleural effusions or pneumothorax. Cardiac: The heart size is within normal limits. Bones: No acute fractures. Other: IMPRESSION: No acute cardiopulmonary disease.
[2021-11-28] MEDS ORDERED: NA CHLORIDE 0.9% 250 ML ONE (14:24)
[2021-11-28] MEDS ORDERED: FAMOTIDINE 20 MG/2 ML VIAL IV ONE (14:24)
[2021-11-28] MEDS ORDERED: NA CHLORIDE 0.9% 1,000 ML ONE (14:24)
[2021-11-28] MEDS ORDERED: AZITHROMYCIN 500 MG INJ IVPB ONE (14:24)
[2021-11-28 14:46] LABS: Absolute Lymphocytes (CBC) 1.7 K/uL (0.7-4.9); Hematocrit 40.8 % (36.0-45.0); Lymphocytes % 37.7 % (15.3-44.8); MPV 8.3 fL (7.6-11.3)
[2021-11-28 15:34] LABS: ALT/SGPT 25 U/L (12-78); AST/SGOT 16 U/L (15-37); Albumin 3.8 g/dL (3.4-5.0); Alkaline Phosphatase 45 U/L (45-117); BUN Blood Urea Nitrogen 13 mg/dL (7-18); Bicarbonate 28 mmol/L (21-32); Bilirubin Total 0.3 mg/dL (0.2-1.0); Glomerular Filtration Rate 127 ml/min (=/>90); Glucose Level 82 mg/dL (74-106); Potassium 4.3 mmol/L (3.5-5.1); Protein, Total 7.9 g/dL (6.4-8.2); Sodium Level 141 mmol/L (136-145)
[2021-11-28 15:58] LABS: Troponin High Sensitivity < 3.0 pg/mL (<58.9)
--- NOTE | 2021-11-28 16:54 | EDPHYS ---
Physician Documentation [facility] Name: Samanta North Age: 26 yrs Sex: Female : 1995 Arrival Date: 11/28/2021 Time: 12:01 Bed 12 Private MD: ED Physician Nehemiah Jenkins HPI: 11/28 16:46 This 26 yrs old Female presents to ER via Ambulatory with complaints of covid betsy +, Breathing Difficulty. 16:46 The patient has shortness of breath at rest, with light activity. Onset: The betsy symptoms/episode began/occurred 3 day(s) ago. Duration: The symptoms are continuous, and are steadily getting worse. The patient's shortness of breath is aggravated by coughing, is alleviated by rest. Associated signs and symptoms: Pertinent positives: non-productive cough, fever. Severity of symptoms: At their worst the symptoms were mild in the emergency department the symptoms are unchanged. The patient has not experienced similar symptoms in the past. covid positive 3 days. 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 - Social history:: Smoking status: Patient denies any tobacco usage or history of. ROS: 16:49 Constitutional: Negative for fever, chills, and weight loss, Eyes: Negative for injury, betsy pain, redness, and discharge, ENT: Negative for injury, pain, and discharge, Neck: Negative for injury, pain, and swelling, Cardiovascular: Negative for chest pain, palpitations, and edema, Abdomen/GI: Negative for abdominal pain, nausea, vomiting, diarrhea, and constipation, Back: Negative for injury and pain, : Negative for injury, bleeding, discharge, and swelling, MS/Extremity: Negative for injury and deformity, Skin: Negative for injury, rash, and discoloration, Neuro: Negative for headache, weakness, numbness, tingling, and seizure, Psych: Negative for depression, anxiety, suicide ideation, homicidal ideation, and hallucinations, Allergy/Immunology: Negative for hives, rash, and allergies, Endocrine: Negative for neck swelling, polydipsia, polyuria, polyphagia, and marked weight changes, Hematologic/Lymphatic: Negative for swollen nodes, abnormal bleeding, and unusual bruising. 16:49 Respiratory: Positive for cough, with no reported sputum, shortness of breath, on exertion. Exam: 16:49 Constitutional: This is a well developed, well nourished patient who is awake, alert, betsy and in no acute distress. Head/Face: Normocephalic, atraumatic. Eyes: Pupils equal round and reactive to light, extra-ocular motions intact. Lids and lashes normal. Conjunctiva and sclera are non-icteric and not injected. Cornea within normal limits. Periorbital areas with no swelling, redness, or edema. ENT: Nares patent. No nasal discharge, no septal abnormalities noted. Tympanic membranes are normal and external auditory canals are clear. Oropharynx with no redness, swelling, or masses, exudates, or evidence of obstruction, uvula midline. Mucous membranes moist. Neck: Trachea midline, no thyromegaly or masses palpated, and no cervical lymphadenopathy. Supple, full range of motion without nuchal rigidity, or vertebral point tenderness. No Meningismus. Chest/axilla: Normal chest wall appearance and motion. Nontender with no deformity. No lesions are appreciated. Cardiovascular: Regular rate and rhythm with a normal S1 and S2. No gallops, murmurs, or rubs. Normal PMI, no JVD. No pulse deficits. Respiratory: Lungs have equal breath sounds bilaterally, clear to auscultation and percussion. No rales, rhonchi or wheezes noted. No increased work of breathing, no retractions or nasal flaring. Abdomen/GI: Soft, non-tender, with normal bowel sounds. No distension or tympany. No guarding or rebound. No evidence of tenderness throughout. Back: No spinal tenderness. No costovertebral tenderness. Full range of motion. Skin: Warm, dry with normal turgor. Normal color with no rashes, no lesions, and no evidence of cellulitis. MS/ Extremity: Pulses equal, no cyanosis. Neurovascular intact. Full, normal range of motion. Neuro: Awake and alert, GCS 15, oriented to person, place, time, and situation. Cranial nerves II-XII grossly intact. Motor strength 5/5 in all extremities. Sensory grossly intact. Cerebellar exam normal. Normal gait. Psych: Awake, alert, with orientation to person, place and time. Behavior, mood, and affect are within normal limits. 16:49 Musculoskeletal/extremity: DVT Exam: No signs of deep vein thrombosis. no pain, no swelling, no tenderness, negative Homans' sign noted on exam, no appreciated bluish discoloration, no erythema, no increased warmth. Vital Signs: 12:31 BP 128 / 90; Pulse 60; Resp 18 S; Temp 97.1(TE); Pulse Ox 100% on R/A; Weight 68.04 kg aa5 (R); Height 5 ft. 4 in. (162.56 cm) (R); 14:13 BP 127 / 86; Pulse 65; Resp 18; Pulse Ox 100% on R/A; ld1 15:39 BP 124 / 82; Pulse 63; Resp 18; Pulse Ox 100% on R/A; ld1 16:16 BP 126 / 84; Pulse 69; Resp 18; Pulse Ox 100% on R/A; ld1 12:31 Body Mass Index 25.75 (68.04 kg, 162.56 cm) aa5 MDM: 14:13 Patient medically screened. [facility] 16:50 Differential diagnosis: Anemia Anxiety Reaction asthma, Bronchitis pneumonia, betsy Pneumothorax pulmonary edema, Pulmonary Embolism reactive airway disease. Antibiotic administration: The patient is discharged and will get outpatient antibiotics, Zithromax. The patient's Wells Deep Vein Thrombosis Score was calculated as follows: Total Score: 0-2 Pts- Low Risk. The patient's pulmonary embolism risk score was calculated as follows: Total Score: 0-2 points. This patient was found to be at low risk for a pulmonary embolism by using the Well's assessment criteria. Immunization status:. Data reviewed: vital signs, nurses notes, EMS record, lab test result(s), radiologic studies, plain films. Data interpreted: monitor technician: rate is 69 beats/min, rhythm is regular, Pulse oximetry: on room air is 100 %. Test interpretation: by ED physician or midlevel provider: plain radiologic studies. Counseling: I had a detailed discussion with the patient and/or guardian regarding: the historical points, exam findings, and any diagnostic results supporting the discharge/admit diagnosis, lab results, radiology results, the need for outpatient follow up, for definitive care, a family practitioner. 11/28 14:14 Order name: CBC with Diff; Complete Time: 16:39 betsy 11/28 14:14 Order name: Comprehensive Metabolic Panel; Complete Time: 16:39 [facility] 11/28 12:30 Order name: Chest Single View XRAY; Complete Time: 13:56 aa5 11/28 14:14 Order name: Troponin High Sensitivity; Complete Time: 16:39 [facility] 11/28 14:14 Order name: D-Dimer; Complete Time: 16:39 [facility] Administered Medications: 14:34 Drug: NS 0.9% 1000 ml Route: IV; Rate: 1 bolus; Site: right antecubital; ld1 14:34 Drug: Pepcid (famotidine) 20 mg Route: IVP; Site: right antecubital; ld1 14:34 Drug: Zithromax (azithromycin) 500 mg Route: IVPB; Infused Over: 1 hrs; Site: right ld1 antecubital; 17:06 Drug: Aspirin 162 mg Route: PO; ld1 Disposition Summary: 11/28/21 16:53 Discharge Ordered Location: Home [facility] Problem: new [facility] Symptoms: have improved betsy Condition: Stable betsy Diagnosis - Coronavirus infection, unspecified betsy - SARS-associated coronavirus as the cause of diseases classified elsewhere [facility] - Acute upper respiratory infection, unspecified betsy Followup: betsy - With: Private Physician - When: 2 - 3 days - Reason: Recheck today's complaints, Continuance of care, Re-evaluation by your physician Followup: [facility] - With: Adrian Mancia MD - When: 2 - 3 days - Reason: Recheck today's complaints, Re-evaluation by your physician Discharge Instructions: - Discharge Summary Sheet [facility] - Upper Respiratory Infection, Adult betsy - Upper Respiratory Infection, Adult, [id number] [facility] - Aspirin and Your Heart [facility] - Cough, Adult [facility] - COVID-19 [facility] - 10 Things You Can Do to Manage Your COVID-19 Symptoms at Home - [facility] - COVID-19: Quarantine vs. Isolation - [facility] - Prevent the Spread of COVID-19 if You Are Sick - [facility] Forms: - Medication Reconciliation Form [facility] - Thank You Letter [facility] - Antibiotic Education [facility] - Prescription Opioid Use [facility] Prescriptions: - budesonide 180 mcg/actuation Inhalation aerosol powdr breath activated - inhale 1 puff by INHALATION route 2 times per day; 1 Pump; Refills: 0, Product betsy Selection Permitted - Pepcid 20 mg Oral Tablet - take 1 tablet by ORAL route every 12 hours for 30 days; 60 tablet; Refills: 0, betsy Product Selection Permitted - Zithromax Z-Simón 250 mg Oral Tablet - take 1 tablet by ORAL route as directed for 5 days Day 1 - take two (2) tablets betsy one time. Day 2, 3, 4 , 5 take one (1) tablet once daily.; 6 tablet; Refills: 0, Product Selection Permitted Signatures: Dispatcher [employer] Nehemiah Loams MD MD cha Mickail, Joel, PA PA jmm Calderon, Audri, RN RN aa5 Joan Sow RN RN ld1
--- NOTE | 2021-11-28 16:54 | ER ---
Nurse's Notes [facility] Name: Samanta North Age: 26 yrs Sex: Female : 1995 Arrival Date: 11/28/2021 Time: 12:01 Bed 12 Private MD: Diagnosis: Coronavirus infection, unspecified;SARS-associated coronavirus as the cause of diseases classified elsewhere;Acute upper respiratory infection, unspecified Presentation: 11/28 12:31 Chief complaint: Patient states: home test covid-19 positive on Sunday. Pt c/o aa5 headaches, cough, congestion, SOB. Coronavirus screen: congestion, cough unrelated to allergies. Ebola Screen: No symptoms or risks identified at this time. Initial Sepsis Screen: Does the patient meet any 2 criteria? No. Patient's initial sepsis screen is negative. Does the patient have a suspected source of infection? Yes:. Risk Assessment: Do you want to hurt yourself or someone else? Patient reports no desire to harm self or others. Onset of symptoms was November 2021. 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 - Social history:: Smoking status: Patient denies any tobacco usage or history of. Screenin:13 Abuse screen: Denies threats or abuse. Denies injuries from another. Nutritional ld1 screening: No deficits noted. Tuberculosis screening: No symptoms or risk factors identified. Fall Risk None identified. Assessment: 14:13 General: Appears in no apparent distress. comfortable, Behavior is calm, cooperative, ld1 appropriate for age. Pain: Denies pain. Neuro: Level of Consciousness is awake, alert, obeys commands, Oriented to person, place, time, situation. Cardiovascular: Capillary refill < 3 seconds Patient's skin is warm and dry. Rhythm is sinus rhythm. Respiratory: Airway is patent Respiratory effort is even, unlabored, Breath sounds are clear bilaterally. 17:06 Reassessment: Patient appears in no apparent distress at this time. Patient is alert, ld1 oriented x 3, equal unlabored respirations, skin warm/dry/pink. Vital Signs: 12:31 BP 128 / 90; Pulse 60; Resp 18 S; Temp 97.1(TE); Pulse Ox 100% on R/A; Weight 68.04 kg aa5 (R); Height 5 ft. 4 in. (162.56 cm) (R); 14:13 BP 127 / 86; Pulse 65; Resp 18; Pulse Ox 100% on R/A; ld1 15:39 BP 124 / 82; Pulse 63; Resp 18; Pulse Ox 100% on R/A; ld1 16:16 BP 126 / 84; Pulse 69; Resp 18; Pulse Ox 100% on R/A; ld1 12:31 Body Mass Index 25.75 (68.04 kg, 162.56 cm) aa5 ED Course: 12:01 Patient arrived in ED. am2 12:30 Arm band placed on. aa5 12:32 Triage completed. aa5 12:40 David Medrano PA is PHCP. [facility] 12:40 Nehemiah Jenkins MD is Attending Physician. [facility] 13:08 Chest Single View XRAY In Process Unspecified. EDMS 13:52 Joan Sow, ODELL is Primary Nurse. ld1 13:56 David Medrano PA is PHCP. jm 13:56 Nehemiah Jenkins MD is Attending Physician. [facility] 14:13 Patient has correct armband on for positive identification. Placed in gown. Bed in low ld1 position. Call light in reach. Side rails up X2. bank advisor on. Pulse ox on. NIBP on. Door closed. Noise minimized. Warm blanket given. 14:13 No provider procedures requiring assistance completed. ld1 14:34 Inserted saline lock: 20 gauge in right antecubital area, using aseptic technique. ld1 Blood collected. 16:52 Adrian Mancia MD is Referral Physician. betsy 17:06 IV discontinued, intact, bleeding controlled, No redness/swelling at site. ld1 Administered Medications: 14:34 Drug: NS 0.9% 1000 ml Route: IV; Rate: 1 bolus; Site: right antecubital; ld1 14:34 Drug: Pepcid (famotidine) 20 mg Route: IVP; Site: right antecubital; ld1 14:34 Drug: Zithromax (azithromycin) 500 mg Route: IVPB; Infused Over: 1 hrs; Site: right ld1 antecubital; 17:06 Drug: Aspirin 162 mg Route: PO; ld1 Medication: 14:13 VIS not applicable for this client. ld1 Outcome: 16:53 Discharge ordered by . betsy 17:06 Discharged to home ambulatory. ld1 17:06 Condition: stable 17:06 Discharge instructions given to patient, Instructed on discharge instructions, follow up and referral plans. medication usage, Demonstrated understanding of instructions, follow-up care, medications, Prescriptions given X 3. 17:06 Patient left the ED. ld1 Signatures: Dispatcher [employer] EDMS Nehemiah Jenkins MD MD cha Mickail, Joel, PA PA jmm Calderon, Audri, RN RN aa5 Danielle Ledezma Lauren, RN RN ld1
[2021-11-28] MEDS ORDERED: ASPIRIN 81 MG CHEWABLE TABLET ONE (17:08)
[2021-11-28 17:14] VITALS: TEMP 97.1; O2SAT 100
[2021-11-28 17:18] VITALS: BP 126/84
== END 2021-11-28 17:06 | disposition home or self-care (01) ==
LOC: ER 12:00
DX: U07.1 COVID-19 (principal); J06.9 Acute upper respiratory infection, unspecified; Z91.013 Allergy to seafood
CPT/HCPCS: 85025; 36415; 85379; 84484; 80053; 71045; J0456; J7050; J7030; J3490; 96374; 96375; 99284

== ENCOUNTER 2022-04-17 18:29 | Emergency (ER) | payer OTHER ==
[2022-04-17] MEDS ORDERED: PROMETHAZINE INJ 25 MG/ML AMP ONE (19:03)
[2022-04-17] MEDS ORDERED: NA CHLORIDE 0.9% 1,000 ML ONE (19:03)
[2022-04-17 19:30] LABS: Absolute Lymphocytes (CBC) 1.1 K/uL (0.7-4.9); Lymphocytes % 8.7 % (15.3-44.8); MCV 85.5 fL (80-100); MPV 8.4 fL (7.6-11.3)
[2022-04-17 20:03] LABS: Urine Blood Negative (Negative); Urine Glucose Negative (Negative); Urine Protein 1+ (Negative); Urine pH 7.5 (5.0-7.0)
[2022-04-17 20:06] LABS: Albumin 3.7 g/dL (3.4-5.0); Bilirubin Total 0.4 mg/dL (0.2-1.0); Potassium 3.6 mmol/L (3.5-5.1); Protein, Total 7.8 g/dL (6.4-8.2)
--- NOTE | 2022-04-17 20:46 | RAD REPORT ---
EXAM DESCRIPTION: US - Abdomen Exam Limited - 04/17/2022 8:17 pm CLINICAL HISTORY: ABD PAIN COMPARISON: Abdomen Pelvis Wo Contrast dated 09/25/2020 FINDINGS: No gallstones or sludge seen. A 3 mm echogenic nonshadowing focus adherent to the gallblad santosh wall is likely a polyp. There is no wall thickening or pericholecystic fluid. No common duct stone or biliary tree dilatation identified. IMPRESSION: No gallbladder and biliary tree significant finding.
--- NOTE | 2022-04-17 20:47 | RAD REPORT ---
EXAM DESCRIPTION: US - Transvaginal OB - 04/17/2022 8:17 pm CLINICAL HISTORY: ABD CRAMPING, COMPARISON: OBSTETRICAL COMPLETE dated 02/28/2013 FINDINGS: Single common normal shaped intrauterine gestational sac is seen. pole and yolk sac are identified. [place]-rump length and yolk sac measurements yield a 7 week 1 day age. Heart rate is 1 60 BPM. Calculated PASCUAL is 12/03/2022. No intrauterine hematoma or mass. Neither ovary clearly identified. No adnexal abnormality. No blood or fluid in the cul de sac. IMPRESSION: Single 7 week 1 day IUP with heart rate 160 BPM
--- NOTE | 2022-04-17 20:55 | ER ---
Nurse's Notes [facility] Name: Samanta North Age: 27 yrs Sex: Female : 1995 Arrival Date: 04/17/2022 Time: 18:31 Bed 23 Private MD: Diagnosis: Vomiting of , unspecified Presentation: 04/17 18:53 Chief complaint: Patient states: N/V, body aches, headache since this morning. Found ld1 out pt was 1 week ago. Coronavirus screen: At this time, the client does not indicate any symptoms associated with coronavirus-19. Ebola Screen: No symptoms or risks identified at this time. Initial Sepsis Screen: Does the patient meet any 2 criteria? No. Patient's initial sepsis screen is negative. Does the patient have a suspected source of infection? No. Patient's initial sepsis screen is negative. Risk Assessment: Do you want to hurt yourself or someone else? Patient reports no desire to harm self or others. Onset of symptoms was April 17, 2022. 18:53 Method Of Arrival: Ambulatory ld1 18:53 Acuity: SANCHEZ 4 ld1 Triage Assessment: 18:54 General: Appears in no apparent distress. comfortable, Behavior is calm, cooperative, ld1 appropriate for age. Pain: Denies pain. EENT: No signs and/or symptoms were reported regarding the EENT system. Neuro: Level of Consciousness is awake, alert, obeys commands, Oriented to person, place, time, situation, Appropriate for age. Cardiovascular: Capillary refill < 3 seconds Patient's skin is warm and dry. Respiratory: Airway is patent Respiratory effort is even, unlabored. GI: Abdomen is flat, non-distended, Pt is actively vomiting clear fluid. : No signs and/or symptoms were reported regarding the genitourinary system. 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 - Social history:: Smoking status: Patient denies any tobacco usage or history of. Patient/guardian denies using alcohol. Screenin:58 Abuse screen: Denies threats or abuse. Denies injuries from another. Nutritional kr3 screening: No deficits noted. Tuberculosis screening: No symptoms or risk factors identified. Fall Risk None identified. Assessment: 19:45 General: Appears in no apparent distress. comfortable, Behavior is calm, cooperative, kr3 appropriate for age. GI: Abdomen is round non-distended. Vital Signs: 18:53 BP 119 / 90; Pulse 72; Resp 18; Temp 98.0(O); Pulse Ox 99% on R/A; Weight 63.5 kg; ld1 Height 5 ft. 4 in. (162.56 cm); Pain 0/10; 19:40 BP 113 / 61; Pulse 58; Resp 18; Pulse Ox 100% on R/A; kr3 20:40 BP 108 / 62; Pulse 64; Resp 18; Pulse Ox 100% on R/A; kr3 18:53 Body Mass Index 24.03 (63.50 kg, 162.56 cm) ld1 ED Course: 18:31 Patient arrived in ED. am2 18:33 Patti Hirsch [facility]-C [facility]. kb 18:33 Guzman Starkey MD is Attending Physician. kb 18:54 Triage completed. ld1 18:54 Arm band placed on right wrist. ld1 18:57 Annamaria Hernandez, ODELL is Primary Nurse. kr3 20:19 US Transvaginal Ob In Process Unspecified. EDMS 20:19 US Abdomen Limited In Process Unspecified. EDMS 20:58 Patient has correct armband on for positive identification. Placed in gown. Bed in low kr3 position. Call light in reach. Side rails up X2. Pulse ox on. NIBP on. Door closed. Noise minimized. Warm blanket given. 20:58 No provider procedures requiring assistance completed. IV discontinued, intact, kr3 bleeding controlled, No redness/swelling at site. Administered Medications: 19:35 Drug: NS 0.9% 1000 ml Route: IV; Rate: 1 bolus; Site: right antecubital; kr3 19:35 Drug: Phenergan (promethazine) 6.25 mg Route: IVP; Site: right antecubital; kr3 Medication: 20:59 VIS not applicable for this client. kr3 Outcome: 20:54 Discharge ordered by MD. matthews 20:58 Discharged to home ambulatory. kr3 20:58 Condition: stable 20:58 Discharge instructions given to patient, Instructed on discharge instructions, follow up and referral plans. Demonstrated understanding of instructions, follow-up care. 20:59 Patient left the ED. kr3 Signatures: Dispatcher [employer] EDMS Patti Hirsch, DRUM PULLER-C DRUM PULLER-Danielle Amado am2 Jona Sow, RN RN ld1 Annamaria Hernandez RN RN kr3
--- NOTE | 2022-04-17 20:55 | EDPHYS ---
Physician Documentation [facility] Name: Samnata North Age: 27 yrs Sex: Female : 1995 Arrival Date: 04/17/2022 Time: 18:31 Bed 23 Private MD: ED Physician Guzman Starkey HPI: 04/17 20:26 This 27 yrs old Female presents to ER via Ambulatory with complaints of kb Vomiting, Headache, +preg. 20:26 The patient presents to the emergency department with abdominal pain, nausea and kb vomiting, that started last night. course: care: none, Leakage of Fluid: none appreciated, Ultrasound: the patient has not had an ultrasound, Risk/complications: no obvious risks or complications are appreciated. Previous pregnancies: in previous pregnancies patient has had. Associated signs and symptoms: Pertinent positives: abdominal pain, nausea, vomiting. The patient has not experienced similar symptoms in the past. The patient has not recently seen a physician. 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 - Social history:: Smoking status: Patient denies any tobacco usage or history of. Patient/guardian denies using alcohol. ROS: 20:21 Constitutional: Negative for fever, chills, and weight loss. kb 20:21 Abdomen/GI: Positive for abdominal pain, nausea and vomiting, Negative for diarrhea, constipation. 20:21 Neuro: Positive for headache. 20:21 All other systems are negative. Exam: 20:21 Constitutional: This is a well developed, well nourished patient who is awake, alert, kb and in no acute distress. Head/Face: Normocephalic, atraumatic. ENT: Moist Mucous membranes Cardiovascular: Regular rate and rhythm with a normal S1 and S2. No gallops, murmurs, or rubs. No pulse deficits. Respiratory: Respirations even and unlabored. No increased work of breathing. Talking in full sentences Skin: Warm, dry with normal turgor. Normal color. MS/ Extremity: Pulses equal, no cyanosis. Neurovascular intact. Full, normal range of motion. Neuro: Awake and alert, GCS 15, oriented to person, place, time, and situation. Moves all extremities. Normal gait. Psych: Awake, alert, with orientation to person, place and time. Behavior, mood, and affect are within normal limits. 20:21 Abdomen/GI: Inspection: abdomen appears normal, Bowel sounds: normal, Palpation: soft, in all quadrants, mild abdominal tenderness, in the suprapubic area, right upper quadrant, right lower quadrant and left lower quadrant. Vital Signs: 18:53 BP 119 / 90; Pulse 72; Resp 18; Temp 98.0(O); Pulse Ox 99% on R/A; Weight 63.5 kg; ld1 Height 5 ft. 4 in. (162.56 cm); Pain 0/10; 19:40 BP 113 / 61; Pulse 58; Resp 18; Pulse Ox 100% on R/A; kr3 20:40 BP 108 / 62; Pulse 64; Resp 18; Pulse Ox 100% on R/A; kr3 18:53 Body Mass Index 24.03 (63.50 kg, 162.56 cm) ld1 MDM: 18:50 Patient medically screened. kb 20:20 Data reviewed: vital signs, nurses notes. Data interpreted: Pulse oximetry: on room air kb is 99 %. Interpretation: normal. Counseling: I had a detailed discussion with the patient and/or guardian regarding: the historical points, exam findings, and any diagnostic results supporting the discharge/admit diagnosis, lab results, radiology results, the need for outpatient follow up, an OB/Gyne specialist, to return to the emergency department if symptoms worsen or persist or if there are any questions or concerns that arise at home. 04/17 18:55 Order name: CBC with Diff; Complete Time: 20:01 kb 04/17 18:55 Order name: CMP; Complete Time: 20:06 kb 04/17 18:55 Order name: Lipase; Complete Time: 20:06 kb 04/17 18:55 Order name: Abo/rh Typing; Complete Time: 20:06 kb 04/17 18:55 Order name: Quantitative Hcg; Complete Time: 20:06 kb 04/17 20:04 Order name: Urine Dipstick-Ancillary; Complete Time: 20:06 EDMS 04/17 18:55 Order name: IV Saline Lock; Complete Time: 19:35 kb 04/17 18:55 Order name: Labs collected and sent; Complete Time: 19:35 kb 04/17 18:55 Order name: US Transvaginal Ob; Complete Time: 20:51 kb 04/17 18:55 Order name: Urine Dipstick-Ancillary (obtain specimen); Complete Time: 20:11 kb 04/17 18:55 Order name: US Abdomen Limited; Complete Time: 20:51 kb 04/17 20:08 Order name: Urine --Ancillary (enter results); Complete Time: 20:31 wm 04/17 18:55 Order name: Urine Test (obtain specimen); Complete Time: 20:11 kb Administered Medications: 19:35 Drug: NS 0.9% 1000 ml Route: IV; Rate: 1 bolus; Site: right antecubital; kr3 19:35 Drug: Phenergan (promethazine) 6.25 mg Route: IVP; Site: right antecubital; kr3 Disposition: 04/18 17:09 Co-signature as Attending Physician, Guzman Starkey MD. rn Disposition Summary: 04/17/22 20:54 Discharge Ordered Location: Home kb Condition: Stable kb Diagnosis - Vomiting of , unspecified kb Followup: kb - With: Emergency Department - When: As needed - Reason: Worsening of condition Followup: kb - With: Private Physician - When: 2 - 3 days - Reason: Recheck today's complaints, Continuance of care, Re-evaluation by your physician Discharge Instructions: - Discharge Summary Sheet kb - Morning Sickness, [id number] kb - Nausea and Vomiting, Adult, [id number] kb Forms: - Medication Reconciliation Form kb - Thank You Letter kb - Antibiotic Education kb - Prescription Opioid Use kb Signatures: Dispatcher [employer] EDUT Patti Hirsch, REEFER TRUCK DRIVER-C REEFER TRUCK DRIVER-Ckb Guzman Starkey MD MD rn Dibbern, Lauren, RN RN ld1 Annamaria Hernandez RN RN kr3
[2022-04-17 22:35] VITALS: TEMP 98
[2022-04-17 22:36] VITALS: O2SAT 100
[2022-04-17 22:38] VITALS: BP 108/62
== END 2022-04-17 20:59 | disposition home or self-care (01) ==
LOC: ER 18:29
DX: O21.9 Vomiting of pregnancy, unspecified (principal); Z3A.01 Less than 8 weeks gestation of pregnancy; Z91.013 Allergy to seafood
CPT/HCPCS: 85025; 36415; 86900; 81025; 86901; 84702; 81003; 83690; 80053; 76705; 76817; 96374; 99283; J2550; J7030

== ENCOUNTER 2024-10-30 23:44 | Emergency (ER) | payer OTHER ==
--- NOTE | 2024-10-31 01:31 | ER ---
Nurse's Notes [facility] Name: Samanta North Age: 29 yrs Sex: Female : 1995 Arrival Date: 10/30/2024 Time: 23:44 Bed DX5 Private MD: Diagnosis: Presentation: 10/31 00:16 Chief complaint: Patient states: I am having vaginal bleeding that started at 8 am. It jb4 is a heavy flow with clots. Coronavirus screen: At this time, the client does not indicate any symptoms associated with coronavirus-19. Ebola Screen: No symptoms or risks identified at this time. Initial Sepsis Screen: Does the patient meet any 2 criteria? No. Patient's initial sepsis screen is negative. Does the patient have a suspected source of infection? No. Patient's initial sepsis screen is negative. Risk Assessment: Do you want to hurt yourself or someone else? Patient reports no desire to harm self or others. Onset of symptoms was October 31, 2024. Transition of care: patient was not received from another setting of care. 00:16 Method Of Arrival: Ambulatory jb4 00:16 Acuity: SANCHEZ 3 jb4 Triage Assessment: 00:16 General: Appears in no apparent distress. comfortable, Behavior is calm, cooperative, jb4 appropriate for age. Pain: Denies pain. Neuro: Level of Consciousness is awake, alert, obeys commands, Oriented to person, place, time, situation. Cardiovascular: Patient's skin is warm and dry. Respiratory: Airway is patent Respiratory effort is even, unlabored, Respiratory pattern is regular, symmetrical. : Reports vaginal bleeding that is with clots, heavy flow. Derm: Skin is intact, Skin is pink, warm \\T\\ dry. Musculoskeletal: Circulation, motion, and sensation intact. Range of motion: intact in all extremities. Historical: - Allergies: 00:51 SHELLFISH; jb4 - PMHx: 00:51 None; jb4 - PSHx: 00:51 None; jb4 - Immunization history:: Adult Immunizations up to date. - Infectious Disease History:: Denies. - Social history:: Smoking status: Patient denies any tobacco usage or history of. Screenin:00 [facility] ED Fall Risk Assessment (Adult) History of falling in the last 3 months, ha1 including since admission No falls in past 3 months (0 pts) Confusion or Disorientation No (0 pts) Intoxicated or Sedated No (0 pts) Impaired Gait No (0 pts) Mobility Assist Device Used No (0 pt) Altered Elimination No (0 pt) Score/Fall Risk Level 0 - 2 = Low Risk Oriented to surroundings, Maintained a safe environment, Hourly rounding (assess needs \\T\\ fall precautionary measures) done. Abuse screen: Denies threats or abuse. Denies injuries from another. Nutritional screening: No deficits noted. Tuberculosis screening: No symptoms or risk factors identified. Assessment: 01:00 Reassessment: CALLED PATIENT. PATIENT STATES " I WENT TO THE BATHROOM AND I NOTICED ha1 VERY LITTLE BLEEDING SO I DECIDED TO GO HOME.". Vital Signs: 00:16 BP 126 / 87; Pulse 95; Resp 16; Pulse Ox 100% on R/A; Weight 72.57 kg; Height 5 ft. 4 jb4 in. (R); 00:16 Body Mass Index 27.46 (72.57 kg, 162.56 cm) jb4 ED Course: 10/30 23:46 Patient arrived in ED. jj6 23:52 Michael Nichols MD is Attending Physician. rt 10/31 00:16 Arm band placed on right wrist. jb4 00:17 Triage completed. jb4 01:00 Patient's name was called from ER [facility]. No response. ha1 01:28 No provider procedures requiring assistance completed. Patient did not have IV access ha1 during this emergency room visit. Administered Medications: No medications were administered Outcome: 01:00 Discharged to home ambulatory, ha1 01:00 Condition: stable 01:00 Discharge instructions given to patient, Instructed on discharge instructions, follow up and referral plans. Demonstrated understanding of instructions, follow-up care, 01:30 Patient left the ED. ha1 Signatures: Miles Pereyra RN RN jb4 Micki Hill jj6 Kari Jackson RN RN ha1 Michael Nichols MD MD rt Corrections: (The following items were deleted from the chart) 01:28 01:23 Patient's name was called from ER [facility]. No response. ha1 ha1
[2024-10-31 01:52] VITALS: BP 126/87; O2SAT 100
== END 2024-10-31 01:30 | disposition left against medical advice (07) ==
LOC: ER 23:44
DX: Z53.21 Procedure and treatment not carried out due to patient leaving prior to being seen by health care provider (principal)
CPT/HCPCS: 99282